=== PATIENT | female | born 1990 | race Caucasian/White ===

== ENCOUNTER 2019-05-18 14:54 | Outpatient (CLI) | payer MEDICAID, SELFPAY ==
[2019-05-18 15:30] LABS: Abs Immature Grans 0.05 k/cumm (0.0-0.09); Absolute Basophil Count 0.03 k/cumm (0.0-0.2); Absolute Lymphocyte Count 2.55 k/cumm (1.2-3.4); Absolute Monocyte Count 0.42 k/cumm (0.11-0.7); Basophils % 0.2; Eosinophils % 1.1; HCT 37.4 % (36.0-46.0); HGB 12.6 g/dL (12.0-15.5); Immature Grans % 0.4; Lymphocytes % 18.2; Mean Corp. HGB Concentration 33.7 g/dL (32.0-36.0); Mean Corpuscular Hemoglobin 31.7 pg (27.0-33.0); Mean Platelet Volume 10.2 fL (8.0-11.0); Neutrophils % 77.1; Platelet Count 377 x1000/uL (130-400); RBC 3.98 m/cumm (4.00-5.20); RBC Distribution Width 12.6 % (11.7-14.6); White Blood Cell Count 13.99 k/cumm (4.4-10.8)
[2019-05-18 15:32] LABS: Absolute Eosinophil Count 0.15 k/cumm (0.0-0.7); Absolute Neutrophil Count 10.79 k/cumm (1.2-6.7)
[2019-05-18 20:56] LABS: ALT 35 U/L (14-59); AST 34 U/L (15-37); Albumin 3.2 g/dL (3.4-5.0); Alkaline Phosphatase 137 U/L (46-116); Bilirubin, Direct 0.14 mg/dL (0.00-0.20); Bilirubin, Total 0.2 mg/dL (0.2-1.0); TSH (W/Ref FT4) 2.06 uIU/mL (0.36-3.74); Total Protein 6.9 g/dL (6.4-8.2)
[2019-05-19 10:13] LABS: Hepatitis C Ab w Rflx HCV PCR Negative (NEGAT)
[2019-05-19 10:26] LABS: HIV-1/2 Ag & Ab Screen Negative (NEGAT); Hepatitis B Surface Ag Negative (NEGAT)
[2019-05-19 10:42] LABS: Rubella IgG Ab (UVM) Positive; Varicella IgG Antibody Positive
[2019-05-19 15:57] LABS: Syphilis Total Ab w/Reflex Nonreactive (Nonreactive)
== END 2019-05-18 15:14 ==
PROVIDERS: Visit Provider Advanced Practice Midwife
DX: Z34.91 Encounter for supervision of normal pregnancy, unspecified, first trimester (principal); Z11.3 Encounter for screening for infections with a predominantly sexual mode of transmission; Z11.4 Encounter for screening for human immunodeficiency virus [HIV]; Z11.59 Encounter for screening for other viral diseases; Z01.84 Encounter for antibody response examination; Z12.4 Encounter for screening for malignant neoplasm of cervix; Z11.51 Encounter for screening for human papillomavirus (HPV)
CPT/HCPCS: 36415; 80076; 86787; 86803; 86850; 86900; 86901; 87340; 87389; 87491; 87591; 88142; 84443; 85025; 86762; 86780; 87624

== ENCOUNTER 2019-05-18 15:54 | Outpatient (REF) | payer MEDICAID, SELFPAY ==
--- NOTE | 2019-05-18 14:00 | PAPFT_PTH ---
PATIENT: Gabriela Hines LOC: [facility] U#:[id number] AGE/SX: 28/F ROOM: RE05/18/[address]: Jovany Clemons RN : 1990 BED: DIS: 05/18/2019 SPEC #: [id number] RECD: 05/18/19 18:32 STATUS: DARLINE REQ #: [id number] KVNG: 05/18/19 14:[address]: Jovany Clemons DEPT: [facility] Cytology RECD BY: Rosy Melgar ENTERED: 05/18/19 18:32 SP TYPE: PAPFT TAMMIE DR: None Tissues: 1 - CX/ENDOCX FOR PAP SMEARS Procedures: PAP THIN PREP/UVM Screening HPV DNA PROBE Comments: [id number]
[2019-05-20 15:16] LABS: Chlamydia Result Negative; GC Result Negative; Specimen Description CERVIX
== END 2019-05-18 16:14 ==
LOC: LBN 15:54
PROVIDERS: Visit Provider Advanced Practice Midwife
DX: Z34.91 Encounter for supervision of normal pregnancy, unspecified, first trimester (principal); Z11.3 Encounter for screening for infections with a predominantly sexual mode of transmission; Z12.4 Encounter for screening for malignant neoplasm of cervix; Z11.51 Encounter for screening for human papillomavirus (HPV)
CPT/HCPCS: 87491; 87591; 88142; 87624

== ENCOUNTER 2019-05-28 12:08 | Outpatient (CLI) | payer MEDICAID, SELFPAY ==
[2019-06-08 14:04] LABS: Result Summary NEGATIVE; Specimen WB Whole Blood
== END 2019-05-28 12:28 ==
PROVIDERS: Visit Provider Advanced Practice Midwife
DX: Z36.89 Encounter for other specified antenatal screening; Z34.91 Encounter for supervision of normal pregnancy, unspecified, first trimester
CPT/HCPCS: 36415; 81220

== ENCOUNTER 2019-06-24 09:39 | Outpatient (CLI) | payer MEDICAID, SELFPAY ==
[2019-06-24 09:59] LABS: Kit/Specimen SENT
== END 2019-06-24 09:59 ==
PROVIDERS: Visit Provider Obstetrics & Gynecology
DX: Z34.81 Encounter for supervision of other normal pregnancy, first trimester (principal); Z36.89 Encounter for other specified antenatal screening
CPT/HCPCS: 36415

== ENCOUNTER 2019-08-04 00:55 | Outpatient (CLI) | payer MEDICAID, SELFPAY ==
--- NOTE | 2019-08-04 08:38 | DI.US_ITS ---
EXAM: US OB 2-3 TRIMESTER CLINICAL HISTORY: morphology u/s, , Z34.90 TECHNIQUE: Transabdominal obstetrical ultrasound performed. COMPARISON: No previous for comparison. FINDINGS: Transabdominal obstetrical ultrasound performed. FINDINGS: Number of fetuses: One. position: Varied heart rate: 160 bpm. Placental grade: 1 Placental location: Posterior. No evidence of previa. BIOMETRIC DATA: BPD: 4.3cm HC: 15.7cm AC: 13.5cm FL: 2.6cm Cisterna Magna: 3.9 millimeters Cerebellum: 1.88 centimeters EFW: 242 grms 32% Composite Age: 18 weeks 4 days Heart Rate: 160BPM Amniotic fluid index: Amount of fluid is within normal limits. ANATOMICAL SURVEY: Four-chambered heart: Unremarkable. LVOT: Unremarkable. RVOT: Unremarkable. Left-sided stomach: Unremarkable. urinary bladder: Unremarkable. Bilateral kidneys: Unremarkable. Three-vessel cord: Unremarkable. Cord insertion: Unremarkable. Posterior fossa:Unremarkable. ventricles: Unremarkable. nose: Unremarkable. lips: Unremarkable. palate: Unremarkable. spine: Unremarkable. Two arms and two legs: Unremarkable. IMPRESSION: 1. Single live intrauterine gestation as above. Estimated gestational age is 18 weeks 4 days. 2. No or placental abnormalities are identified.
== END 2019-08-04 01:15 ==
PROVIDERS: Visit Provider Obstetrics & Gynecology Gynecology
DX: Z34.92 Encounter for supervision of normal pregnancy, unspecified, second trimester (principal)
CPT/HCPCS: 76805

== ENCOUNTER 2019-10-13 11:13 | Outpatient (CLI) | payer MEDICAID, SELFPAY ==
[2019-10-13 11:25] LABS: Abs Immature Grans 0.05 k/cumm (0.0-0.09); Absolute Basophil Count 0.02 k/cumm (0.0-0.2); Absolute Monocyte Count 0.25 k/cumm (0.11-0.7); Absolute Neutrophil Count 5.08 k/cumm (1.2-6.7); Basophils % 0.3; Eosinophils % 1.4; HCT 32.2 % (36.0-46.0); HGB 10.7 g/dL (12.0-15.5); Immature Grans % 0.7 %; Lymphocytes % 20.3; Mean Corp. HGB Concentration 33.2 g/dL (32.0-36.0); Mean Corpuscular Hemoglobin 31.8 pg (27.0-33.0); Mean Corpuscular Volume 95.8 fL (80-95); Mean Platelet Volume 9.8 fL (8.0-11.0); Monocytes % 3.6; Neutrophils % 73.7; Platelet Count 343 x1000/uL (130-400); RBC 3.36 m/cumm (4.00-5.20); RBC Distribution Width 12.8 % (11.7-14.6)
[2019-10-13 11:31] LABS: Glucose,1 Hr (Glucola) 128 mg/dL (80-140)
== END 2019-10-13 11:33 ==
PROVIDERS: Visit Provider Obstetrics & Gynecology
DX: Z34.93 Encounter for supervision of normal pregnancy, unspecified, third trimester (principal)
CPT/HCPCS: 36415; 82950; 85025

== ENCOUNTER 2019-11-13 02:11 | Outpatient (CLI) | payer MEDICAID, SELFPAY ==
--- NOTE | 2019-11-13 12:45 | DI.US_ITS ---
EXAM: US OB WOJCIECH AND WEIGHT CLINICAL HISTORY: HISTORY OF IUGR, -Z34.90. TECHNIQUE: Transabdominal obstetrical ultrasound performed. COMPARISON: US OB 2-3 TRIMESTER from 08/04/2019 FINDINGS: Transabdominal obstetrical ultrasound performed. There is a single intrauterine gestation. Estimated sonographic age is 32 weeks. Estimated weight is 1954 g. This is the 20th percentile. Amniotic fluid index is 16.0 cm. Visually, the amniotic fluid appears within normal limits. Fetus is in the cephalic presentation. heart rate is 125 beats per minute. The placenta is posterior without evidence of previa. IMPRESSION: Single live intrauterine gestation as above. DATA REPOSITORY:
== END 2019-11-13 02:31 ==
PROVIDERS: Visit Provider Obstetrics & Gynecology
DX: Z34.93 Encounter for supervision of normal pregnancy, unspecified, third trimester (principal)
CPT/HCPCS: 76816

== ENCOUNTER 2019-11-17 00:50 | Inpatient (IN) | payer MEDICAID, SELFPAY ==
[2019-11-17 01:57] LABS: Bilirubin Small (Negative); Blood Trace-intact (Negative); Clarity Clear (Clear); Glucose Negative (Negative); Ketones Negative (Negative); Leukocyte Esterase Trace (Negative); Nitrite Negative (Negative); Specific Gravity 1.025 (1.005-1.025)
[2019-11-17 01:58] LABS: Bacteria Few HPF (Negative); C & S Indicated? Yes; Casts Negative LPF (Negative); Crystals Negative HPF (Negative); Epithelial Cells Few HPF (Negative); Mucus Negative (Negative); RBC 0-2 HPF (0-2)
[2019-11-17] MEDS: ceFAZolin 1 GM/50 ML BAG IVPB (02:07)
[2019-11-17] MEDS: Lactated Ringers 1,000 ML 150 ML IV (02:08)
[2019-11-17] MEDS: Betamet Acet/Betamet Na Ph Inj. 30 MG/5 ML 12 MG IM (02:08)
[2019-11-17 02:09] LABS: *AMPHETAMINES SCREEN URINE Negative (Negative); *BARBITURATES SCREEN URINE Negative (Negative); *BENZODIAZEPINES SCREEN URINE Negative (Negative); Cannabinoids THC Negative (Negative); Cocaine Screen,Urine Negative (Negative); METHADONE URINE SCREEN POSITIVE (Negative); OPIATES URINE SCREEN Negative (Negative)
[2019-11-17 02:15] LABS: Tricyclic Antidepressants Negative (Negative)
[2019-11-17 02:18] LABS: HCT 31.2 % (36.0-46.0); HGB 10.4 g/dL (12.0-15.5); Mean Corp. HGB Concentration 33.3 g/dL (32.0-36.0); Mean Corpuscular Hemoglobin 31.3 pg (27.0-33.0); Platelet Count 324 x1000/uL (130-400); RBC 3.32 m/cumm (4.00-5.20); RBC Distribution Width 13.3 % (11.7-14.6); White Blood Cell Count 8.68 k/cumm (4.4-10.8)
[2019-11-17] MEDS: Azithromycin 250 MG TAB 1000 MG PO (02:26)
[2019-11-17] MEDS: Albuterol HFA 8 GM 60 PUFF INH IH (02:26)
--- NOTE | 2019-11-17 02:38 | W.PM.HP.N ---
Date of service: 11/17/19 Time of Service: 02:38 Assessment and Plan Assessment and plan (1) Long-term current use of methadone for opiate dependence: Status: Acute Assessment and plan: Patient has been compliant with her methadone maintenance no IV drug use for 3 years. (2) Major depressive disorder, recurrent, unspecified: Status: Acute Assessment and plan: Depression symptoms stable. Currently none of her children are in her care. Her mother has custody of her children. She sees them on a regular basis. Qualifiers: Active/Remission status: currently active Major depression episode severity: unspecified Qualified Code(s): F33.9 - Major depressive disorder, recurrent, unspecified (3) premature rupture of membranes: Status: Acute Assessment and plan: GBS rectovaginal culture obtained. Will be transported with the patient. Patient has received azithromycin 1 g orally, 1 g of cefoxitin, magnesium sulfate infusion will be initiated prior to transport. CBC and type and screen have been obtained. She has been accepted for transfer at [facility]. Qualifiers: PROM onset of labor timing: unspecified duration between rupture of membranes and onset of labor Qualified Code(s): O42.919 - premature rupture of membranes, unspecified as to length of time between rupture and onset of labor, unspecified trimester History of Present Illness History of Present Illness Chief Complaint: SROM at 2345 11/16/2019. Patient 33-5/7 weeks EGA Review of Systems Constitutional Constitutional: Reports as per HPI Respiratory Respiratory: Reports system reviewed and no additional complaints, except as documented Gastrointestinal Gastrointestinal: Reports system reviewed and no additional complaints, except as documented Genitourinary Genitourinary: Reports other (Gush of fluid at 2345. Occasional contractions) Musculoskeletal Musculoskeletal: Reports other (Pretibial lower extremity edema 1+) Integumentary/Breasts Skin/Breast: Reports system reviewed and no additional complaints, except as documented Psychiatric Psychiatric: Reports anxiety Comments: Patient compliant with methadone maintenance at 85 mg/day through the [facility] Medical History (Updated 11/17/19 @ 02:52 by Ashly Johnson MD) Anxiety disorder, unspecified (Acute) Chronic pelvic pain in female since of her son 06/2012 Constipation Contraception (10/21/15) depoprovera after at 33w. IBS (irritable bowel syndrome) Long-term current use of methadone for opiate dependence (Acute) Through [facility] in [facility]. 11 17 2019 current dose 85 mg Major depressive disorder, recurrent, unspecified (Acute) Opioid abuse began Methadone Rx during 2016 (Acute) premature rupture of membranes (Acute) 33 weeks 5 days EGA Surgical History (Updated 06/18/18 @ 14:36 by [employer] [place]) Appendectomy (~2011) Dilation and curettage with SAB age 15 Family History (Updated 05/18/19 @ 13:34 by Jovany Villar CNM) Father Blood clotting tendency pt does not know exact name, it was cause of . COPD (chronic obstructive pulmonary disease) Mother Diabetes Social History (Updated 06/22/19 @ 12:52 by Jeri Tony RN) Smoking/Tobacco Use Status: Current every day Alcohol Intake: former Drug use: Current Sobriety Substance use type: former substance user and painkillers Seatbelt use: never Do you feel safe in your relationship?: Yes Female Reproductive History Menstrual control method: none History History 9 Para 5 Hx # Term Pregnancies 3 Multiple births 0 Hx # Pregnancies 2 Ectopic pregnancies 0 AB induced 1 Hx Number of Living Children 5 AB spontaneous 2 Past Pregnancies Del. Date GA/Weeks # Outcome Route Wgt Sex Labor Lgth Anesthesia Location [facility] 01/05/10 38 No Successful vaginal 6 lb 1 oz Female 4 hrs [facility] 12/21/10 34 No Successful vaginal 5 lb 8 oz Female ? [facility] 06/11/12 24 No Successful vaginal 2 lb 8 oz [place] [facility] [place] 07/26/14 38 No Successful vaginal 6 lb 11 oz Female ? [facility] dr[facility] cheng 10/20/15 24 No Successful vaginal 4 lb 8 oz Female ? dr. cheng Delivery Date: 01/05/10 w/o c/o. JOVANY VILLAR Delivery Date: 12/21/10 sga thus iol, w/o c/o. JOVANY VILLAR Delivery Date: 06/11/12 [place] [facility] [place] then [place] then delivery. JOVANY VILLAR Delivery Date: 07/26/14 term spontaneous JOVANY VILLAR Delivery Date: 10/20/15 circlage spontaneous labor 6cm on admission, delivered at [facility], yet infant to [facility] [place] 2`to infection , a&w. AUREA,ANEA Meds Home Medications and Allergies Home Medications Medication Instructions Recorded Confirmed Type mirtazapine 30 mg tablet 30 mg PO HS #120 tab-cap 05/09/19 10/13/19 Rx hydroxyprogest(PF)(preg presv) 275 275 mg SC QWEEK #4 syringe 09/07/19 10/13/19 Rx mg/1.1 mL subcut auto-inject albuterol sulfate 90 mcg/actuation 1 inh IH ONCE #18 gm 11/13/19 11/13/19 Rx aerosol inhaler omeprazole 40 mg capsule,delayed 40 mg PO DAILY #60 cap 11/13/19 11/13/19 Rx release methadone 10 mg/mL oral concentrate 85 mg PO DAILY ml 11/17/19 11/17/19 History Allergies Allergy/AdvReac Type Severity Reaction Status Date / Time amoxicillin Allergy Mild Skin Rash Verified 11/13/19 13:42 sulfamethoxazole Allergy Mild Skin Rash Verified 11/13/19 13:42 [From Bactrim] Latex, Natural Rubber Allergy Verified 11/13/19 13:42 Penicillins Allergy Skin Rash Verified 11/13/19 13:42 acetaminophen AdvReac Severe liver Verified 11/13/19 13:42 disease Exam Narrative Exam Narrative: female currently 33w5d EGA with a CJ of 12/31/2019 by a first trimester OB ultrasound who reports spontaneous rupture membranes this evening. She presented to the center at [facility] and was nitrazine positive ferning +3 cm dilated 100% effaced vertex -1 station contractions every 2 to 3 minutes heart rate in the 140s with reassuring surveillance. After discussion with the patient she is agreed to transfer to a facility with a level 2 nursery. She is aware that no beds are currently available at local tertiary care facilities and that [facility] is able to accept her. Const General: no acute distress and frail appearing Nutritional Appearance: thin Orientation: alert, awake and oriented x3 HENMT Teeth and gingiva: poor dentition Resp Effort & Inspection: normal respiratory effort Auscultation: clear to auscultation bilaterally Cardio Rate: regular rate Rhythm: regular rhythm GI Inspection: normal to inspection (Gravid) Rectal Exam - female: other (Hard feces and rectum on bimanual exam) Manual OB Exam: dilated 3, effaced fully (90-100%), station -1 and other (Vertex) Amniotic Fluid: clear, Nitrazine positive and ferning present Skin General skin exam: scars (From previous IV drug use) Results Labs Result diagrams: 11/17/19 01:50 Labs: Laboratory Results - last 24 hr 11/17/19 11/17/19 11/17/19 01:05 01:05 01:50 WBC 8.68 RBC 3.32 L Hgb 10.4 L Hct 31.2 L MCV 94.0 MCH 31.3 MCHC 33.3 RDW 13.3 Plt Count 324 MPV 11.0 Urine Color Yellow Urine Clarity Clear Urine pH 7.0 Ur Specific [place] 1.025 Urine Protein 100 H Urine Ketones Negative Urine Blood Trace-intact H Urine Nitrite Negative Urine Bilirubin Small H Urine Urobilinogen 1.0 H Ur Leukocyte Esterase Trace H Urine RBC 0-2 Urine WBC 3-5 Ur Epithelial Cells Few Urine Crystals Negative Urine Bacteria Few Urine Casts Negative Urine Mucus Negative Ur Culture Indicated? Yes Urine Glucose Negative Urine Opiates Screen Negative Urine Methadone Screen Positive A Ur Barbiturates Screen Negative Ur Tricyclics Screen Negative Ur Amphetamines Screen Negative U Benzodiazepines Scrn Negative Urine Cocaine Screen Negative Ur THC Screen Negative
== END 2019-11-17 03:20 | disposition other institution (70) | DRG 832 ==
LOC: OBS 00:56
PROVIDERS: Admitting Provider Obstetrics & Gynecology Gynecology; PCP Emergency Medicine; Visit Provider Obstetrics & Gynecology Gynecology
DX: O42.013 Preterm premature rupture of membranes, onset of labor within 24 hours of rupture, third trimester (principal); O99.323 Drug use complicating pregnancy, third trimester; F11.20 Opioid dependence, uncomplicated; Z3A.33 33 weeks gestation of pregnancy; O99.333 Smoking (tobacco) complicating pregnancy, third trimester; O99.343 Other mental disorders complicating pregnancy, third trimester; F17.210 Nicotine dependence, cigarettes, uncomplicated; Z36.85 Encounter for antenatal screening for Streptococcus B; F32.9 Major depressive disorder, single episode, unspecified
CPT/HCPCS: 80307; 85027; 86850; 86900; 86901; 99222; 81003; 81015; 87081; 87086; G0378; J0690; J0702; J3475; J3490

== ENCOUNTER 2020-05-03 04:01 | Outpatient (CLI) | payer MEDICAID, SELFPAY ==
[2020-05-03 12:09] LABS: Kit/Specimen SENT
[2020-05-03 12:24] LABS: Abs Immature Grans 0.02 10^3/uL (0.0-0.06); Absolute Basophil Count 0.03 10^3/uL (0.0-0.2); Absolute Eosinophil Count 0.14 10^3/uL (0.0-0.7); Absolute Lymphocyte Count 2.41 10^3/uL (1.2-3.4); Absolute Monocyte Count 0.25 10^3/uL (0.1-0.8); Absolute Neutrophil Count 3.22 10^3/uL (1.2-6.7); Basophils % 0.5; Eosinophils % 2.3; HCT 32.7 % (36.0-46.0); HGB 10.6 g/dL (11.2-15.7); Immature Grans % 0.3; Lymphocytes % 39.7; MCH 29.6 pg (27.0-33.0); MCHC 32.4 % (32.0-36.0); MCV 91.3 fL (80-95); MPV 10.4 fL (8.0-11.0); Monocytes % 4.1; Neutrophils % 53.1; Nucleated RBC 0 %; Platelet Count 355 10^3/uL (130-400); RBC 3.58 10^6/uL (3.93-5.22); RDW 15.8 % (11.7-14.6); RDW-SD 52.9 fL; WBC 6.07 10^3/uL (4.4-10.8)
[2020-05-03 13:08] LABS: TSH (W/Ref FT4) 1.31 uIU/mL (0.36-3.74)
[2020-05-03 15:04] LABS: *AMPHETAMINES SCREEN URINE Negative (Negative); *BARBITURATES SCREEN URINE Negative (Negative); *BENZODIAZEPINES SCREEN URINE Negative (Negative); Cannabinoids THC Negative (Negative); Cocaine Screen,Urine Negative (Negative); METHADONE URINE SCREEN POSITIVE (Negative); OPIATES URINE SCREEN Negative (Negative)
[2020-05-03 15:10] LABS: Tricyclic Antidepressants Negative (Negative)
[2020-05-04 11:12] LABS: Hepatitis B Surface Ag Negative (Negative)
[2020-05-04 11:13] LABS: Varicella IgG Antibody Positive (See Note)
[2020-05-04 11:15] LABS: Rubella IgG Ab (UVM) Positive (See Note)
[2020-05-04 11:46] LABS: HIV-1/2 Ag & Ab Screen Negative (Negative)
[2020-05-04 12:13] LABS: Hepatitis C Ab w Rflx HCV PCR Negative (Negative)
[2020-05-04 13:50] LABS: Chlamydia Result Negative (Negative); GC Result Negative (Negative)
[2020-05-04 16:28] LABS: Syphilis Total Ab w/Reflex Nonreactive (Nonreactive)
[2020-05-11 11:07] LABS: Buprenorphine Negative; Norbuprenorphine Negative
== END 2020-05-03 04:21 ==
PROVIDERS: PCP Emergency Medicine; Visit Provider Advanced Practice Midwife
DX: Z34.91 Encounter for supervision of normal pregnancy, unspecified, first trimester (principal); Z36.89 Encounter for other specified antenatal screening; Z11.4 Encounter for screening for human immunodeficiency virus [HIV]; Z11.59 Encounter for screening for other viral diseases; Z01.84 Encounter for antibody response examination; Z11.3 Encounter for screening for infections with a predominantly sexual mode of transmission
CPT/HCPCS: 36415; 80307; 86787; 86803; 86850; 86900; 86901; 87340; 87389; 87491; 87591; 84443; 85025; 86762; 86780

== ENCOUNTER 2020-05-25 02:48 | Outpatient (CLI) | payer MEDICAID, SELFPAY ==
[2020-05-25 08:25] LABS: Kit/Specimen SENT
== END 2020-05-25 03:08 ==
PROVIDERS: Advanced Practice Midwife; PCP Emergency Medicine; Visit Provider Obstetrics & Gynecology
DX: Z34.91 Encounter for supervision of normal pregnancy, unspecified, first trimester (principal); Z36.89 Encounter for other specified antenatal screening
CPT/HCPCS: 36415

== ENCOUNTER 2020-07-05 01:14 | Outpatient (CLI) | payer MEDICAID, SELFPAY ==
--- NOTE | 2020-07-05 06:45 | DI.US_ITS ---
EXAM: US OB 2-3 TRIMESTER CLINICAL HISTORY: Anatomy survey,Z34.90. TECHNIQUE: Transabdominal obstetrical ultrasound performed. COMPARISON: US US OB WOJCIECH WEIGHT from 11/13/2019 FINDINGS: Transabdominal obstetrical ultrasound performed. FINDINGS: Number of fetuses: One. position: Varied heart rate: 140 bpm. Placental location: Anterior. No evidence of previa. BIOMETRIC DATA: Composite Age: 19 weeks 2 days EDC: 11/27/2020 Heart Rate: 140BPM Amniotic fluid index: Amount of fluid is within normal limits. ANATOMICAL SURVEY: Within normal limits. BPD: 4.3cm HC: 16.3cm AC: 14.4cm FL: 3cm Cisterna Magna: 5 mm Cerebellum: 1.9 cm IMPRESSION: 1. Single live intrauterine gestation as above. 2. Normal anatomic survey. DATA REPOSITORY:
--- NOTE | 2020-07-05 06:45 | DI.US_ITS ---
EXAM: US ABDOMEN CLINICAL HISTORY: RUQ pain IN , R10.11 TECHNIQUE: Ultrasound abdomen performed using standard protocol. COMPARISON: No exams were available for comparison FINDINGS: ABDOMINAL AORTA AND IVC: Visualized portions normal caliber. PANCREAS: Normal where visualized. LIVER: Normal. Hepatopedal flow in the Portal Vein. GALLBLADDER: Multiple mobile gallstones. No evidence of wall thickening. No pericholecystic fluid id entified. BILIARY SYSTEM: Common bile duct measures < 7 mm. No intrahepatic biliary ductal dilation. ROCHA'S SIGN: Negative. KIDNEYS: Kidneys are symmetric in size. No evidence of renal calculi. No evidence of hydronephrosis. No renal mass or cyst identified. SPLEEN: Not enlarged. ASCITES: None seen. IMPRESSION: Cholelithiasis. No sonographic evidence of acute cholecystitis. DATA REPOSITORY:
== END 2020-07-05 01:34 ==
PROVIDERS: PCP Emergency Medicine; Visit Provider Obstetrics & Gynecology
DX: Z34.92 Encounter for supervision of normal pregnancy, unspecified, second trimester (principal); O99.612 Diseases of the digestive system complicating pregnancy, second trimester; K80.20 Calculus of gallbladder without cholecystitis without obstruction
CPT/HCPCS: 76700; 76805

== ENCOUNTER 2020-07-07 11:57 | Inpatient (IN) | payer MEDICAID, SELFPAY ==
[2020-07-07] VITALS (49 sets, daily range): BP systolic 97–157; BP diastolic 49–79; PULSE 60–101; RESP 5–20; TEMP 36.5–36.7; O2SAT 93–100
[2020-07-07 12:33] LABS: Abs Immature Grans 0.07 10^3/uL (0.0-0.06); Absolute Basophil Count 0.02 10^3/uL (0.0-0.2); Absolute Eosinophil Count 0.05 10^3/uL (0.0-0.7); Absolute Lymphocyte Count 1.27 10^3/uL (1.2-3.4); Absolute Monocyte Count 0.35 10^3/uL (0.1-0.8); Absolute Neutrophil Count 9.87 10^3/uL (1.2-6.7); Basophils % 0.2; Eosinophils % 0.4; HCT 28.9 % (36.0-46.0); HGB 9.4 g/dL (11.2-15.7); Immature Grans % 0.6; Lymphocytes % 10.9; MCH 30.9 pg (27.0-33.0); MCHC 32.5 % (32.0-36.0); MCV 95.1 fL (80-95); MPV 9.9 fL (8.0-11.0); Neutrophils % 84.9; Nucleated RBC 0 %; Platelet Count 371 10^3/uL (130-400); RBC 3.04 10^6/uL (3.93-5.22); RDW 13.2 % (11.7-14.6); RDW-SD 45.9 fL; WBC 11.63 10^3/uL (4.4-10.8)
--- NOTE | 2020-07-07 12:36 | NUR.NOTE ---
water aerobics instructor at bedside for evaluation:
[2020-07-07 12:49] LABS: ALT 32 U/L (14-59); AST 27 U/L (15-37); Albumin 2.1 g/dL (3.4-5.0); Alkaline Phosphatase 610 U/L (46-116); Anion Gap 13.6 mmol/L (3-11); BUN 11 mg/dL (7-18); Bilirubin, Total 0.4 mg/dL (0.2-1.0); CO2 22.4 mmol/L (21.0-32.0); CREATININE 0.84 mg/dL (0.55-1.02); Calcium 8.7 mg/dL (8.5-10.1); Chloride 102 mmol/L (98-107); Glucose 109 mg/dL (74-106); Potassium 3.5 mmol/L (3.5-5.1); Sodium 138 mmol/L (136-145); Total Protein 7.4 g/dL (6.4-8.2)
[2020-07-07] MEDS: Albuterol/Ipratropium 3 ML UPD VIAL UPD ×2 (12:54→13:07)
--- NOTE | 2020-07-07 12:55 | DI.RAD_ITS ---
EXAM: XR CHEST 1V IN DI DEPT CLINICAL HISTORY: cough, wheeze TECHNIQUE: 2D digital imaging was performed. COMPARISON: No exams were available for comparison FINDINGS: MEDIASTINUM: Normal. HEART: Normal. PULMONARY VASCULATURE: Normal. LUNGS: Increased lung markings in the bases left greater than right. Pneumonia cannot be excluded. PLEURAL SPACE: No pleural effusion or pneumothorax. BONE:Within normal limits for the patient's age. OTHER FINDINGS:Poor inspiration. IMPRESSION: 1. Low lung volumes are present due to poor inspiration. 2. Basilar infiltrate suspicious for pneumonia. DATA REPOSITORY: RADIATION DOSE DELIVERED:
--- NOTE | 2020-07-07 13:07 | W.GYNCONSULT ---
Date of service: 07/07/20 Time of Service: 13:07 Assessment and Plan Assessment and plan (1) with 20 completed weeks gestation: Status: Acute Assessment and plan: Patient has care well at [facility]. She has had an episode of vaginal bleeding with cough. She has no signs of labor at this point. She will monitor for further symptoms. (2) Long-term current use of methadone for opiate dependence: Status: Acute Assessment and plan: Continue medication assisted therapy through [facility] (3) Smoker: Status: Chronic Assessment and plan: Encourage smoking cessation (4) Anxiety and depression: Status: Chronic (5) Upper respiratory infection: Status: Acute Assessment and plan: Await chest x-ray and laboratory studies. Agree with bronchodilators, possible antibiotics as needed. History of Present Illness History of Present Illness Chief Complaint: Cough and congestion, vaginal bleeding Narrative: Patient is a 29-year-old female well-known to the [facility] who is currently 20 weeks gestation. She is a grand multipara with 3 previous term deliveries, 3 previous deliveries, and 3 early losses. She has had intermittent care in our office. Her most recent visit was mid June. She had a recent pelvic ultrasound for growth and anatomy. She presented to the emergency department today with upper respiratory symptoms. She has a daughter who was recently hospitalized at [facility] with bronchiolitis as well. She denies fever but has significant cough. She reports an episode of vaginal bleeding after significant episodes of coughing. She denies fever at this point. Her oral intake has been appropriate. She denies cramping. Baby is moving and active for her. Consults Consult date: 07/07/20 Requesting physician: Soto Brooks Review of Systems Constitutional Constitutional: Reports as per HPI Eyes Eyes: Reports system reviewed and no additional complaints, except as documented Cardiovascular Cardiovascular: Reports as per HPI Respiratory Respiratory: Reports as per HPI, Reports chest congestion, Reports pain with cough and Reports wheezing Gastrointestinal Gastrointestinal: Reports system reviewed and no additional complaints, except as documented Genitourinary Genitourinary: Reports system reviewed and no additional complaints, except as documented and Reports as per HPI Comments: Episode of vaginal bleeding after coughing which is now tapered off no cramping, no uterine contractions. Neurologic Neurologic: Reports system reviewed and no additional complaints, except as documented Allergic/Immunologic Allergic/Immunologic: Reports wheezing PFSH Medical History Anxiety disorder, unspecified Chronic pelvic pain in female since of her son 06/2012 Constipation Contraception (10/21/15) depoprovera after at 33w. IBS (irritable bowel syndrome) Long-term current use of methadone for opiate dependence Through [facility] in [facility]. 11 17 2019 current dose 85 mg Major depressive disorder, recurrent, unspecified Opioid abuse began Methadone Rx during 2016 premature rupture of membranes 11/16/2019 33 weeks 5 days EGA. Transferred to [facility] in [facility]. . F. 4lb8oz. Marah. [place] [facility] [place]. Surgical History Appendectomy (~2011) Dilation and curettage with SAB age 15 Family History Father Blood clotting tendency pt does not know exact name, it was cause of . COPD (chronic obstructive pulmonary disease) Mother Diabetes Social History Smoking/Tobacco Use Status: Current every day Smoking risk assessment performed?: Yes Alcohol Intake: former Drug use: Current Sobriety Substance use type: former substance user and painkillers Seatbelt use: never Do you feel safe at home: Yes Do you feel safe in your relationship?: Yes Female Reproductive History Menstrual control method: none History History 10 Para 6 Hx # Term Pregnancies 3 Multiple births 0 Hx # Pregnancies 3 Ectopic pregnancies 0 AB induced 1 Hx Number of Living Children 6 AB spontaneous 2 Past Pregnancies Del. Date GA/Weeks # Outcome Route Wgt Sex Labor Lgth Anesthesia Location Prov Complic 01/05/10 38 No Successful vaginal 6 lb 1 oz Female [facility] hrs [facility] [place] 12/21/10 34 No Successful vaginal 5 lb 8 oz Female ? [facility] 06/11/12 24 No Successful vaginal 2 lb 8 oz [place] [facility] [place] 38 No Successful vaginal 6 lb 11 oz Female ? regional dr. cheng 10/20/15 24 No Successful vaginal 4 lb 8 oz Female ? dr. cheng 11/17/19 34 No Successful vaginal 4 lb 8 oz Female quick labor and , no meds [place] Delivery Date: 01/05/10 w/o c/o. COREY VILLAR Delivery Date: 12/21/10 sga thus iol, w/o c/o. COREY VILLAR Delivery Date: 06/11/12 [place] [facility] [place]. COREY VILLAR Delivery Date: 07/26/14 term spontaneous COREY VILLAR Delivery Date: 10/20/15 circlage spontaneous labor 6cm on admission, delivered at [facility], [place] [facility] [place] 2[place] infection , a&w. COREY VILLAR Delivery Date: 11/17/19 PPROM, transferred to [facility], delivered the next day. Izabella Pardo Exam Const General: cooperative, well developed and ill appearing Nutritional Appearance: thin Orientation: alert and oriented x3 Eyes General: appearance normal, both eyes and all related structures Resp Effort & Inspection: audible wheezes Auscultation: bronchovesicular breath sounds, rhonchi left upper and wheezes upper bilaterally Cardio Rate: regular rate Rhythm: regular rhythm Heart Sounds: S1 normal and S2 normal Other: Uterus gravid at the umbilicus. Nontender, no palpable contractions. Results Last Vital Signs Temp 97.7 F 07/07/20 12:04 Pulse 74 07/07/20 12:54 Resp 17 07/07/20 12:54 BP 112/52 L 07/07/20 12:04 Pulse Ox 100 07/07/20 12:54 Labs Result diagrams: 07/07/20 12:23 07/07/20 12:23 Labs: Laboratory Results - last 24 hr 07/07/20 07/07/20 12:23 12:23 WBC 11.63 H RBC 3.04 L Hgb 9.4 L Hct 28.9 L MCV 95.1 H MCH 30.9 MCHC 32.5 RDW 13.2 Plt Count 371 MPV 9.9 Immature Gran % 0.6 Neutrophils % 84.9 Lymphocytes % 10.9 Monocytes % 3.0 Eosinophils % 0.4 Basophils % 0.2 Nucleated RBC % 0 Absolute Neutrophils 9.87 H Absolute Lymphocytes 1.27 Absolute Monocytes 0.35 Absolute Eosinophils 0.05 Absolute Basophils 0.02 Sodium 138 Potassium 3.5 Chloride 102 Carbon Dioxide 22.4 Anion Gap 13.6 H BUN 11 Creatinine 0.84 Estimated GFR/1.73 m2 >= 60.00 Glucose 109 H Calcium 8.7 Total Bilirubin 0.4 AST 27 ALT 32 Alkaline Phosphatase 610 H Total Protein 7.4 Albumin 2.1 L
--- NOTE | 2020-07-07 14:58 | NUR.NOTE ---
checked pts chari pad. scant old drainage. nothing new. no active bleeding currently:
[2020-07-07 15:01] LABS: HCT 27.2 % (36.0-46.0); HGB 8.7 g/dL (11.2-15.7); MCH 30.3 pg (27.0-33.0); MCV 94.8 fL (80-95); MPV 9.8 fL (8.0-11.0); Platelet Count 337 10^3/uL (130-400); RBC 2.87 10^6/uL (3.93-5.22); RDW 13.2 % (11.7-14.6); RDW-SD 46.2 fL; WBC 9.34 10^3/uL (4.4-10.8)
--- NOTE | 2020-07-07 15:17 | DI.US_ITS ---
EXAM: US OB F/U FACIAL/LVOT/RVOT CLINICAL HISTORY: vaginal bleeding. TECHNIQUE: Transabdominal obstetrical ultrasound performed. COMPARISON: No exams were available for comparison FINDINGS: Transabdominal obstetrical ultrasound performed. FINDINGS: Number of fetuses: One. position: Breech heart rate: 152 bpm. Placental location: Anterior. No evidence of previa. BIOMETRIC DATA: Amniotic fluid index: Amount of fluid is within normal limits. There is an incompetent dilated internal cervical os. Amniotic fluid is seen transiting through the cervix. There is additional fluid seen within the cervix forming a collection measuring 7 x 3.8 x 6. 9 cm. This fluid collection distends the cervical canal with marked thinning of the cervical grijalva. Bulk of the amniotic fluid is contained within the collection and not within the uterus. IMPRESSION: 1. Single live intrauterine gestation as above. 2. Findings of an incompetent dilated internal cervical os and large intracervical amniotic fluid col lection. DATA REPOSITORY:
--- NOTE | 2020-07-07 15:20 | W.ED.GENAD ---
Discharge Plan Disposition Patient Disposition: [facility] INPATIENT Condition: Serious Discharge Details Clinical Impression: Incomplete miscarriage, Pneumonia Primary Care Provider: Jose Jiménez ED Provider: Soto Brooks Home Meds and New Rx's Prescriptions: No Action [place] (PF) 275 mg/1.1 mL auto-injector 275 mg SC QWEEK Qty: 4 RF: 4 pantoprazole [Protonix] 20 mg tablet,delayed release (DR/EC) 40 mg PO DAILY Qty: 30 RF: 3 methadone [Methadone Intensol] 10 mg/mL concentrate 85 mg PO DAILY RF: 0 mirtazapine 30 mg tablet 30 mg PO HS Qty: 120 RF: 5 albuterol sulfate [ProAir HFA] 90 mcg/actuation HFA aerosol inhaler 1 inh IH ONCE PRNRF: 0 Medical Decision Making 1430 -- 29-year-old female G7, P6 at 19 weeks here with vaginal bleeding after coughing for the past week. I consulted fudge candy maker on-call, Dr. Kimble, who evaluated the patient feels bleeding is slowed and patient is stable at this time. Recommend continued treatment of respiratory illness. Patient receiving neb treatment for acute asthma exacerbation. Consider pneumonia versus bronchitis. Plan to obtain chest x-ray. Initial hemoglobin lower than recent prior at 9.4. 1530??repeat hemoglobin 2 half hours later dropped to 8.7. Plan for ultrasound of the pelvis. I called OB personal care service provider and spoke with Dr. Johnson and updated her as to course. She agrees with ultrasound at this time. Chest x-ray pending. --Chest x-ray was reviewed and interpreted by radiology: Patchy bilateral lobe airspace opacification highly suspicious for pneumonia including atypical or viral etiologies. Appropriate clinical correlation should be performed. Consider atypical bacterial pneumonia. Will start doxycycline IV. Again of note, daughter recently had bronchiolitis and daughter tested negative for Covid. Covid remains on the differential. I will send Covid testing. 1615 --ultrasound reviewed and interpreted by radiology: Single viable intrauterine gestation but with incompetent dilated internal cervical os and large intracervical amniotic fluid collection. I have concern for present or impending extrusion of the amnion. A visual inspection is highly recommended. This was discussed with the quahogger who performed examination via telephone at 3:15 PM and as she was being contacted by the consulting fudge candy maker also via telephone. I called and spoke with Dr. Kimble who will see the patient again. 1700 --patient was seen by Dr. Kimble and plan will be to admit. Lab Data Lab results reviewed: Yes I reviewed the patient's lab results. Labs: Laboratory Tests Range/Units 07/07/20 07/07/20 07/07/20 12:23 12:23 12:23 WBC (4.4-10.8) 10^3/uL 11.63 H RBC (3.93-5.22) 10^6/uL 3.04 L Hgb (11.2-15.7) g/dL 9.4 L Hct (36.0-46.0) % 28.9 L MCV (80-95) fL 95.1 H MCH (27.0-33.0) pg 30.9 MCHC (32.0-36.0) % 32.5 RDW (11.7-14.6) % 13.2 Plt Count (130-400) 10^3/uL 371 MPV (8.0-11.0) fL 9.9 Immature Gran % 0.6 Neutrophils % 84.9 Lymphocytes % 10.9 Monocytes % 3.0 Eosinophils % 0.4 Basophils % 0.2 Nucleated RBC % % 0 Absolute Neutrophils (1.2-6.7) 10^3/uL 9.87 H Absolute Lymphocytes (1.2-3.4) 10^3/uL 1.27 Absolute Monocytes (0.1-0.8) 10^3/uL 0.35 Absolute Eosinophils (0.0-0.7) 10^3/uL 0.05 Absolute Basophils (0.0-0.2) 10^3/uL 0.02 Sodium (136-145) mmol/L 138 Potassium (3.5-5.1) mmol/L 3.5 Chloride (98-107) mmol/L 102 Carbon Dioxide (21.0-32.0) mmol/L 22.4 Anion Gap (3-11) mmol/L 13.6 H BUN (7-18) mg/dL 11 Creatinine (0.55-1.02) mg/dL 0.84 Estimated GFR/1.73 m2 (mL/min/1.73m2) >= 60.00 Glucose (74-106) mg/dL 109 H Calcium (8.5-10.1) mg/dL 8.7 Total Bilirubin (0.2-1.0) mg/dL 0.4 AST (15-37) U/L 27 ALT (14-59) U/L 32 Alkaline Phosphatase (46-116) U/L 610 H Total Protein (6.4-8.2) g/dL 7.4 Albumin (3.4-5.0) g/dL 2.1 L Patient ABO/Rh O Positive Antibody Screen Negative Range/Units 07/07/20 14:55 WBC (4.4-10.8) 10^3/uL 9.34 RBC (3.93-5.22) 10^6/uL 2.87 L Hgb (11.2-15.7) g/dL 8.7 L Hct (36.0-46.0) % 27.2 L MCV (80-95) fL 94.8 MCH (27.0-33.0) pg 30.3 MCHC (32.0-36.0) % 32.0 RDW (11.7-14.6) % 13.2 Plt Count (130-400) 10^3/uL 337 MPV (8.0-11.0) fL 9.8 Immature Gran % Neutrophils % Lymphocytes % Monocytes % Eosinophils % Basophils % Nucleated RBC % % Absolute Neutrophils (1.2-6.7) 10^3/uL Absolute Lymphocytes (1.2-3.4) 10^3/uL Absolute Monocytes (0.1-0.8) 10^3/uL Absolute Eosinophils (0.0-0.7) 10^3/uL Absolute Basophils (0.0-0.2) 10^3/uL Sodium (136-145) mmol/L Potassium (3.5-5.1) mmol/L Chloride (98-107) mmol/L Carbon Dioxide (21.0-32.0) mmol/L Anion Gap (3-11) mmol/L BUN (7-18) mg/dL Creatinine (0.55-1.02) mg/dL Estimated GFR/1.73 m2 (mL/min/1.73m2) Glucose (74-106) mg/dL Calcium (8.5-10.1) mg/dL Total Bilirubin (0.2-1.0) mg/dL AST (15-37) U/L ALT (14-59) U/L Alkaline Phosphatase (46-116) U/L Total Protein (6.4-8.2) g/dL Albumin (3.4-5.0) g/dL Patient ABO/Rh Antibody Screen HPI General Mode of arrival: ambulatory. Date/Time Provider Initiated Documentation: 07/07/20 12:12. Limitations to Documentation: no limitations. Information obtained by: patient. HPI Narrative: 29-year-old at 19 weeks here with chief complaint of vaginal bleeding. Patient notes has been coughing for the past 1 to 2 weeks and today developed heavy vaginal bleeding about 1 to 2 hours prior to arrival. Bleeding has slowed. She has no associate abdominal cramping. Patient notes cough is been intermittently productive and she has associated wheeze, noting asthma exacerbation. Her daughter was recently diagnosed with bronchiolitis. She denies associated fever. No vaginal trauma. Related Data Home Medications Medication Instructions Recorded Confirmed methadone 10 mg/mL oral concentrate 85 mg PO DAILY ml 11/17/19 07/07/20 mirtazapine 30 mg tablet 30 mg PO HS #120 tab-cap 12/29/19 07/07/20 albuterol sulfate 90 mcg/actuation 1 inh IH ONCE PRN gm 03/25/20 07/07/20 aerosol inhaler hydroxyprogest(PF)(preg presv) 275 275 mg SC QWEEK #4 syringe 04/19/20 07/07/20 mg/1.1 mL subcut auto-inject pantoprazole 20 mg tablet,delayed 40 mg PO DAILY #30 tab 06/20/20 07/07/20 release Previous Rx's Medication Instructions Recorded mirtazapine 30 mg tablet 30 mg PO HS #120 tab-cap 12/29/19 hydroxyprogest(PF)(preg presv) 275 275 mg SC QWEEK #4 syringe 04/19/20 mg/1.1 mL subcut auto-inject pantoprazole 20 mg tablet,delayed 40 mg PO DAILY #30 tab 06/20/20 release Allergies Allergy/AdvReac Type Severity Reaction Status Date / Time amoxicillin Allergy Mild Skin Rash Verified 07/07/20 12:07 sulfamethoxazole Allergy Mild Skin Rash Verified 07/07/20 12:07 [From Bactrim] Latex, Natural Rubber Allergy Verified 07/07/20 12:07 Penicillins Allergy Skin Rash Verified 07/07/20 12:07 acetaminophen AdvReac Severe liver Verified 07/07/20 12:07 disease General 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 IBS (irritable bowel syndrome) Long-term current use of methadone for opiate dependence Through [facility] in [facility]. 11 17 2019 current dose 85 mg Major depressive disorder, recurrent, unspecified Opioid abuse began Methadone Rx during 2016 with 20 completed weeks gestation premature rupture of membranes 11/16/2019 33 weeks 5 days EGA. Transferred to [facility] in [facility]. . F. [id number]. Marah. [place] [facility]. Upper respiratory infection Surgical History Appendectomy (~2011) Dilation and curettage with SAB age 15 Family History Father Blood clotting tendency pt does not know exact name, it was cause of . COPD (chronic obstructive pulmonary disease) Mother Diabetes Social History Smoking/Tobacco Use Status: Current every day Smoking risk assessment performed?: Yes Alcohol Intake: former Drug use: Current Sobriety Substance use type: former substance user and painkillers Seatbelt use: never Do you feel safe at home: Yes Do you feel safe in your relationship?: Yes Female Reproductive History Menstrual control method: none History History 10 Para 6 Hx # Term Pregnancies 3 Multiple births 0 Hx # Pregnancies 3 Ectopic pregnancies 0 AB induced 1 Hx Number of Living Children 6 AB spontaneous 2 Past Pregnancies Del. Date GA/Weeks # Outcome Route Wgt Sex Labor Lgth Anesthesia Location Prov Complic 01/05/10 38 No Successful vaginal 2749.904 g Female 4 hrs [facility] 12/21/10 34 No Successful vaginal 2494.758 g Female ? [facility] 06/11/12 24 No Successful vaginal 1133.981 g Male ? [facility] [place] 07/26/14 38 No Successful vaginal 3033.399 g Female ? [facility] dr. cheng 10/20/15 24 No Successful vaginal 2041.166 g Female ? dr. cheng 11/17/19 34 No Successful vaginal 2041.166 g Female quick labor and , no meds [place], [place] Delivery Date: 01/05/10 w/o c/o. [facility] Delivery Date: 12/21/10 sga thus iol, w/o c/o. [facility] Delivery Date: 06/11/12 appendectomy @ [facility] [place] then labor then delivery. [facility] Delivery Date: 07/26/14 term spontaneous [facility] Delivery Date: 10/20/15 circlage spontaneous labor 6cm on admission, delivered at [facility], yet to [facility] [place] 2`to infection , a&w. [facility] Delivery Date: 11/17/19 PPROM, transferred to [facility], delivered the next day. Izabella Pardo Exam Const General: cooperative and no acute distress HENPR Mouth: moist mucous membranes Eyes Conjunctivae: normal conjunctivae Sclera: normal sclerae Neck Neck: trachea midline and supple Resp Effort & Inspection: normal respiratory effort and able to speak in complete sentences Auscultation: rales bilaterally, no rhonchi and wheezes expiratory wheezes Cardio Rate: regular rate and not tachycardic Rhythm: regular rhythm GI Palpation: soft, not firm, no guarding, no masses, not rigid and nontender Skin General skin exam: no rashes or lesions noted Neuro General: patient alert, patient awake, patient oriented x3 and tone normal Extrem General: no edema Psych Appearance: grossly normal Mental Status: mental status grossly normal Course Vital Signs Vital signs: Vital Signs Temperature 36.5 C 07/07/20 12:04 Pulse 82 07/07/20 12:04 Respiratory Rate 20 07/07/20 12:04 Blood Pressure 112/52 L 07/07/20 12:04 Pulse Oximetry 98 07/07/20 12:04 Temperature 36.5 C 11/05/20 14:54 Temperature Source Temporal Artery Scan 07/07/20 14:54 Pulse 71 07/07/20 14:54 Respiratory Rate 17 07/07/20 14:54 Respiratory Effort Non-Labored 07/07/20 12:08 Blood Pressure 97/50 L 07/07/20 14:54 Pulse Oximetry 96 07/07/20 14:54 Oxygen Delivery Method Room Air 07/07/20 14:54 Oxygen Flow Rate 0 07/07/20 14:54 Pain Level 0 07/07/20 14:54 Lab/Test Results Lab/Test Results: Laboratory Tests Range/Units 07/07/20 07/07/20 07/07/20 12:23 12:23 12:23 WBC (4.4-10.8) 10^3/uL 11.63 H RBC (3.93-5.22) 10^6/uL 3.04 L Hgb (11.2-15.7) g/dL 9.4 L Hct (36.0-46.0) % 28.9 L MCV (80-95) fL 95.1 H MCH (27.0-33.0) pg 30.9 MCHC (32.0-36.0) % 32.5 RDW (11.7-14.6) % 13.2 Plt Count (130-400) 10^3/uL 371 MPV (8.0-11.0) fL 9.9 Immature Gran % 0.6 Neutrophils % 84.9 Lymphocytes % 10.9 Monocytes % 3.0 Eosinophils % 0.4 Basophils % 0.2 Nucleated RBC % % 0 Absolute Neutrophils (1.2-6.7) 10^3/uL 9.87 H Absolute Lymphocytes (1.2-3.4) 10^3/uL 1.27 Absolute Monocytes (0.1-0.8) 10^3/uL 0.35 Absolute Eosinophils (0.0-0.7) 10^3/uL 0.05 Absolute Basophils (0.0-0.2) 10^3/uL 0.02 Sodium (136-145) mmol/L 138 Potassium (3.5-5.1) mmol/L 3.5 Chloride (98-107) mmol/L 102 Carbon Dioxide (21.0-32.0) mmol/L 22.4 Anion Gap (3-11) mmol/L 13.6 H BUN (7-18) mg/dL 11 Creatinine (0.55-1.02) mg/dL 0.84 Estimated GFR/1.73 m2 (mL/min/1.73m2) >= 60.00 Glucose (74-106) mg/dL 109 H Calcium (8.5-10.1) mg/dL 8.7 Total Bilirubin (0.2-1.0) mg/dL 0.4 AST (15-37) U/L 27 ALT (14-59) U/L 32 Alkaline Phosphatase (46-116) U/L 610 H Total Protein (6.4-8.2) g/dL 7.4 Albumin (3.4-5.0) g/dL 2.1 L Patient ABO/Rh O Positive Antibody Screen Negative Range/Units 07/07/20 14:55 WBC (4.4-10.8) 10^3/uL 9.34 RBC (3.93-5.22) 10^6/uL 2.87 L Hgb (11.2-15.7) g/dL 8.7 L Hct (36.0-46.0) % 27.2 L MCV (80-95) fL 94.8 MCH (27.0-33.0) pg 30.3 MCHC (32.0-36.0) % 32.0 RDW (11.7-14.6) % 13.2 Plt Count (130-400) 10^3/uL 337 MPV (8.0-11.0) fL 9.8 Immature Gran % Neutrophils % Lymphocytes % Monocytes % Eosinophils % Basophils % Nucleated RBC % % Absolute Neutrophils (1.2-6.7) 10^3/uL Absolute Lymphocytes (1.2-3.4) 10^3/uL Absolute Monocytes (0.1-0.8) 10^3/uL Absolute Eosinophils (0.0-0.7) 10^3/uL Absolute Basophils (0.0-0.2) 10^3/uL Sodium (136-145) mmol/L Potassium (3.5-5.1) mmol/L Chloride (98-107) mmol/L Carbon Dioxide (21.0-32.0) mmol/L Anion Gap (3-11) mmol/L BUN (7-18) mg/dL Creatinine (0.55-1.02) mg/dL Estimated GFR/1.73 m2 (mL/min/1.73m2) Glucose (74-106) mg/dL Calcium (8.5-10.1) mg/dL Total Bilirubin (0.2-1.0) mg/dL AST (15-37) U/L ALT (14-59) U/L Alkaline Phosphatase (46-116) U/L Total Protein (6.4-8.2) g/dL Albumin (3.4-5.0) g/dL Patient ABO/Rh Antibody Screen
--- NOTE | 2020-07-07 16:11 | DI.VRAD_ITS ---
PROCEDURE INFORMATION: Exam: XR Chest, 1 View Exam date and time: 07/07/2020 4:02 PM Age: 29 years old Clinical indication: Cough and shortness of breath; Patient HX: Cough, SOB TECHNIQUE: Imaging protocol: XR of the chest Views: 1 view. COMPARISON: No relevant prior studies available. FINDINGS: Lungs: Mild shallow inspiration but with disproportionately increased opacification in right lower lobe and with patchy, more subtle opacification left lower lobe. Pleural space: Normal. Heart/Mediastinum: Normal heart and cardiomediastinal silhouette. Vasculature: Normal pulmonary vessel caliber. Normal aorta. Bones/joints: The bones are intact. Other findings: Mild lordotic patient positioning. IMPRESSION: Patchy bilateral lobe airspace opacification highly suspicious for pneumonia including atypical or viral etiologies. Appropriate clinical correlation should be performed. Dictated and Authenticated by: Anselmo Ackerman MD. Ordering:ROSALES Valera MD
--- NOTE | 2020-07-07 16:22 | DI.VRAD_ITS ---
Addendum created by Anselmo Ackerman MD on 07/07/2020 6:06:49 PM EST: The nature of the abnormalities and findings was discussed with the sports book writer who performed the examination via telephone at 3:15 p.m. and as she was being contacted by the consulting liquor stores and agencies supervisor, also via telephone. Initial report created on 07/07/2020 4:22:36 PM EST: PROCEDURE INFORMATION: Exam: US , Limited Exam date and time: 07/07/2020 3:58 PM Age: 29 years old Clinical indication: Pain; Other: Cramping \T\ bleeding; Gestational age or lmp: 20w, 0d; TECHNIQUE: Imaging protocol: Real-time ultrasound of the maternal uterus with image documentation. Exam focused on the clinical indication. COMPARISON: OB US 1ST TRIMESTER TRANSABD*P 04/20/2015 10:50 PM FINDINGS: Gestation: There is a single intrauterine gestation and the heart rate is 152 bpm. Cervix is nearly completely effaced and there is amniotic fluid transiting through the cervix which measures up to 0.6 cm wide. Additional fluid is present within the cervix itself forming a collection measuring 7 x 3.8 x 6.9 cm and severely distending the cervical canal and markedly thinning the cervical grijalva. The bulk of the amniotic fluid is contained in this collection and not within the uterus. IMPRESSION: Single viable intrauterine gestation but with incompetent dilated internal cervical os and large intracervical amniotic fluid collection. I have concern for present or impending extrusion of the amnion. A visual inspection is highly recommended. This was discussed with the sports book writer who performed the examination via telephone at 3:15 p.m. and as she was being contacted by the consulting liquor stores and agencies supervisor, also via telephone. Dictated and Authenticated by: Anselmo Ackerman MD. Ordering:ROSALES Valera MD
[2020-07-07] MEDS: DOXYCYCLINE 100 MG in Normal Saline 100 ML IVPB (16:38)
--- NOTE | 2020-07-07 18:19 | W.PM.HP.N ---
Date of service: 07/07/20 Time of Service: 18:19 Assessment and Plan Assessment and plan (1) with 20 completed weeks gestation: Status: Acute Assessment and plan: Patient is a 29-year-old 10 para 3-3-3-6 at 20 weeks gestation. She has had of poor obstetric history with numerous deliveries and previous early delivery after cerclage. She was initially seen and examined in the emergency department today for respiratory symptoms and an atypical pneumonia. Covid testing is pending. She had findings of prolapse, hourglass membranes on ultrasound with cervical dilation and breech presentation with a foot within the cervical canal. Due to this significant obstetric complication, patient was admitted to the birthing center. We do lengthy conversation with the patient and her partner regarding the poor obstetric outcome and the necessity to treat patient aggressively for her pneumonia. As per the patient's request, [facility] maternal- medicine was consulted. After lengthy conversation with maternal- medicine they have no bed availability on their center and at this point, have no further treatment modalities other than conservative watchful waiting of this at this point. It is imperative that we monitor very closely for signs and symptoms of infection. Patient and her partner understand this. They do understand that there is a significant chance of poor obstetric outcomes. They also understand that at 20 weeks is nonviable. We will monitor serial laboratory studies for evidence of worsening or elevated white blood cell count (2) Pneumonia: Status: Acute Assessment and plan: Due to the atypical pattern of her pneumonia on chest x-ray, she will continue on doxycycline with consultation from internal medicine. She will have cough suppressants, breathing treatments, and symptomatic therapeutics. (3) Threatened miscarriage: Status: Acute Assessment and plan: We will continue to monitor with heart tones as indicated. If patient has spontaneous rupture of membranes, Pitocin augmentation of labor may be undertaken. Patient does have a history of hemorrhage and is at risk for this due to early gestation, potential for infection, and difficulty with placental separation. (4) Incompetent cervix: Status: Acute Assessment and plan: Hourglass membranes we will continue to monitor for progression and/or rupture (5) Abnormalities of amnion: Status: Acute (6) Smoker: Status: Chronic Assessment and plan: Nicotine patch for nicotine replacement (7) Anxiety and depression: Status: Chronic Assessment and plan: Will a monitor closely for worsening anxiety or depression and assist with sleep aid. (8) Long-term current use of methadone for opiate dependence: Status: Acute Assessment and plan: She will continue her methadone dose as per outpatient at 85 mg on a daily basis. She is in the [facility] program. She does have her take her medication which she will tonight. History of Present Illness History of Present Illness Chief Complaint: Atypical Pnuemonia, Prolapsed membranes at 20 weeks Narrative: Patient is a 29-year-old 10 para 3-3-3-6 well-known to the [facility]. She is currently at 20 weeks gestation. She presented to the emergency department today with complaints of cough, congestion, mild shortness of breath. Incidentally she had an episode of vaginal bleeding with coughing. She has had sick contacts at home and that her daughter had been recently admitted to [facility] with bronchiolitis. Patient herself has a known history of asthma complicating her respiratory status. She has no known Covid contacts and has not traveled any great distance. She denies fevers or chills. She denies abdominal pain associated with her vaginal bleeding or crampiness. During her evaluation in the emergency department which included baseline laboratory studies, chest x-ray, and obstetric ultrasound she was noted to have an atypical appearing pneumonia on chest x-ray and on ultrasound exam consistent with hourglassing membranes through the cervix with cervical dilation of approximately 1 cm and foot present within the dilated cervix. At this point cardiac activity is noted. Placenta was still noted to be fundal. Review of Systems Constitutional Constitutional: Reports as per HPI, Denies chills, Reports difficulty sleeping, Denies fever(s) and Denies night sweats Eyes Eyes: Denies blurry vision and Denies change in vision ENT Ears, Nose, Mouth, and Throat: Denies change in voice, Denies dry mouth and Reports nasal congestion Cardiovascular Cardiovascular: Reports system reviewed and no additional complaints, except as documented, Denies chest pain and Denies syncope Respiratory Respiratory: Reports chest congestion, Reports cough and Reports wheezing Gastrointestinal Gastrointestinal: Reports system reviewed and no additional complaints, except as documented Genitourinary Genitourinary: Reports abnormal vaginal bleeding Musculoskeletal Musculoskeletal: Reports system reviewed and no additional complaints, except as documented Neurologic Neurologic: Denies syncope Psychiatric Psychiatric: Reports panic attacks Allergic/Immunologic Allergic/Immunologic: Reports wheezing PFSH Medical History Anxiety disorder, unspecified Chronic pelvic pain in female since of her son 06/2012 Constipation Contraception (10/21/15) depoprovera after at 33w. IBS (irritable bowel syndrome) Long-term current use of methadone for opiate dependence Through [facility] in [facility]. 11 17 2019 current dose 85 mg Major depressive disorder, recurrent, unspecified Opioid abuse began Methadone Rx during 2016 with 20 completed weeks gestation premature rupture of membranes 11/16/2019 33 weeks 5 days EGA. Transferred to [facility] in [facility]. . F. 4lb8oz. Marah. [place] [facility]. Upper respiratory infection Surgical History Appendectomy (~2011) Dilation and curettage with SAB age 15 Family History Father Blood clotting tendency pt does not know exact name, it was cause of . COPD (chronic obstructive pulmonary disease) Mother Diabetes Social History Smoking/Tobacco Use Status: Current every day Tobacco Type: cigarettes Smoking risk assessment performed?: Yes Alcohol Intake: never Drug use: Current Sobriety Substance use type: former substance user and painkillers Seatbelt use: never Do you feel safe at home: Yes Do you feel safe in your relationship?: Yes Female Reproductive History Menstrual control method: none History History 10 Para 6 Hx # Term Pregnancies 3 Multiple births 0 Hx # Pregnancies 3 Ectopic pregnancies 0 AB induced 1 Hx Number of Living Children 6 AB spontaneous 2 Past Pregnancies Del. Date GA/Weeks # Outcome Route Wgt Sex Labor Lgth Anesthesia Location Prov Complic 01/05/10 38 No Successful vaginal 6 lb 1 oz Female [facility] hrs [facility] 12/21/10 34 No Successful vaginal 5 lb 8 oz Female ? [facility] 06/11/12 24 No Successful vaginal 2 lb 8 oz Male ? [facility] [place] 07/26/14 38 No Successful vaginal 6 lb 11 oz Female ? [facility] dr[facility] cheng 10/20/15 24 No Successful vaginal 4 lb 8 oz Female ? dr. cheng 11/17/19 34 No Successful vaginal 4 lb 8 oz Female quick labor and , no meds [place] Delivery Date: 01/05/10 w/o c/o. [facility] Delivery Date: 12/21/10 sga thus iol, w/o c/o. [facility]ILLAR Delivery Date: 06/11/12 appendectomy @ [facility] [place] then labor then delivery. [facility] Delivery Date: 07/26/14 term spontaneous [facility] Delivery Date: 10/20/15 circlage spontaneous labor 6cm on admission, delivered at [facility], yet to [facility] [place] 2`to infection , a&w. [facility]ILLAR Delivery Date: 11/17/19 PPROM, transferred to [facility], delivered the next day. Izabella Pardo Home Medications and Allergies Home Medications Medication Instructions Recorded Confirmed Type methadone 10 mg/mL oral concentrate 85 mg PO DAILY ml 11/17/19 07/07/20 History mirtazapine 30 mg tablet 30 mg PO HS #120 tab-cap 12/29/19 07/07/20 Rx albuterol sulfate 90 mcg/actuation 1 inh IH ONCE PRN gm 03/25/20 07/07/20 History aerosol inhaler hydroxyprogest(PF)(preg presv) 275 275 mg SC QWEEK #4 syringe 04/19/20 07/07/20 Rx mg/1.1 mL subcut auto-inject pantoprazole 20 mg tablet,delayed 40 mg PO DAILY #30 tab 06/20/20 07/07/20 Rx release Allergies Allergy/AdvReac Type Severity Reaction Status Date / Time amoxicillin Allergy Mild Skin Rash Verified 07/07/20 12:07 sulfamethoxazole Allergy Mild Skin Rash Verified 07/07/20 12:07 [From Bactrim] Latex, Natural Rubber Allergy Verified 07/07/20 12:07 Penicillins Allergy Skin Rash Verified 07/07/20 12:07 acetaminophen AdvReac Severe liver Verified 07/07/20 12:07 disease Exam Const General: cooperative, anxious and ill appearing Nutritional Appearance: average body habitus Orientation: alert and oriented x3 HENMT Head: normal to inspection Face and sinus: normal facial exam Eyes General: appearance normal, both eyes and all related structures Resp Effort & Inspection: normal respiratory effort and able to speak in complete sentences Auscultation: bronchial breath sounds, crackles bilaterally, rales bilaterally and wheezes Cardio Rate: regular rate Rhythm: regular rhythm Heart Sounds: S1 normal and S2 normal GI Inspection: normal to inspection Palpation: not firm, no guarding and no masses OB/External & Speculum: deferred Other: Abdomen gravid. Fundus at the umbilicus. Speculum and bimanual exam deferred due to hourglass membranes Skin General skin exam: no rashes or lesions noted Neuro General: patient alert and patient oriented x3 Cranial Nerves: CN's II-XI intact bilaterally Cognition: normal cognition Speech: speech normal Extrem General: no clubbing, cyanosis or edema Results Labs Result diagrams: 07/07/20 14:55 07/07/20 12:23 Labs: Laboratory Results - last 24 hr 07/07/20 07/07/20 07/07/20 12:23 12:23 12:23 WBC 11.63 H RBC 3.04 L Hgb 9.4 L Hct 28.9 L MCV 95.1 H MCH 30.9 MCHC 32.5 RDW 13.2 Plt Count 371 MPV 9.9 Immature Gran % 0.6 Neutrophils % 84.9 Lymphocytes % 10.9 Monocytes % 3.0 Eosinophils % 0.4 Basophils % 0.2 Nucleated RBC % 0 Absolute Neutrophils 9.87 H Absolute Lymphocytes 1.27 Absolute Monocytes 0.35 Absolute Eosinophils 0.05 Absolute Basophils 0.02 Sodium 138 Potassium 3.5 Chloride 102 Carbon Dioxide 22.4 Anion Gap 13.6 H BUN 11 Creatinine 0.84 Estimated GFR/1.73 m2 >= 60.00 Glucose 109 H Calcium 8.7 Total Bilirubin 0.4 AST 27 ALT 32 Alkaline Phosphatase 610 H Total Protein 7.4 Albumin 2.1 L Patient ABO/Rh O Positive Antibody Screen Negative 07/07/20 14:55 WBC 9.34 RBC 2.87 L Hgb 8.7 L Hct 27.2 L MCV 94.8 MCH 30.3 MCHC 32.0 RDW 13.2 Plt Count 337 MPV 9.8 Immature Gran % Neutrophils % Lymphocytes % Monocytes % Eosinophils % Basophils % Nucleated RBC % Absolute Neutrophils Absolute Lymphocytes Absolute Monocytes Absolute Eosinophils Absolute Basophils Sodium Potassium Chloride Carbon Dioxide Anion Gap BUN Creatinine Estimated GFR/1.73 m2 Glucose Calcium Total Bilirubin AST ALT Alkaline Phosphatase Total Protein Albumin Patient ABO/Rh Antibody Screen Last Vital Signs Temp 98.1 F 07/07/20 17:38 Pulse 90 07/07/20 17:38 Resp 20 07/07/20 17:38 BP 101/62 07/07/20 17:38 Pulse Ox 97 07/07/20 17:38 COVID-19 Screening Have you,or household,traveled outside [place] in last 14 days?: No Had IN PERSON contact w/suspected or confirmed C-19 person: No
[2020-07-07] MEDS: Nicotine 21 MG/24 HR PATCH TD (19:25)
[2020-07-07] MEDS: guaiFENesin/D-METHORPHAN HB 5 ML CUP 10 ML PO (21:14)
[2020-07-07] MEDS: Lactated Ringers 500 ML IV (21:30)
--- NOTE | 2020-07-07 21:38 | W.PM.OBNL1 ---
Date of service: 07/07/20 Time of Service: 21:38 Informed Consent Informed Consent: Augmentation of Labor Pelvic Exam Dilation: 1.5 Effacement (%): 50 station: -4 Cervix Position: mid Consistency: medium Vaginal Exam Presentation: Unknown Pooling: Positive Contractions Intensity: Moderate Assessment and Plan Assessment and plan (1) Abnormalities of amnion: Status: Acute Assessment and plan: Prolapsed membranes with SROM in a non-viable fetus. Now with ROM will place epidural for pain control and augmentation of labor. Patient and understand status change (2) Incompetent cervix: Status: Acute Objective Abnormal lab results 07/07/20 07/07/20 07/07/20 Range/Units 12:23 12:23 14:55 WBC 11.63 H (4.4-10.8) 10^3/uL RBC 3.04 L 2.87 L (3.93-5.22) 10^6/uL Hgb 9.4 L 8.7 L (11.2-15.7) g/dL Hct 28.9 L 27.2 L (36.0-46.0) % MCV 95.1 H (80-95) fL Absolute Neutrophils 9.87 H (1.2-6.7) 10^3/uL Anion Gap 13.6 H (3-11) mmol/L Glucose 109 H (74-106) mg/dL Alkaline Phosphatase 610 H (46-116) U/L Albumin 2.1 L (3.4-5.0) g/dL Temp Pulse Resp BP Pulse Ox 98.1 F 90 20 101/62 97 07/07/20 17:38 07/07/20 17:38 07/07/20 17:38 07/07/20 17:38 07/07/20 17:38 Laboratory Results WBC 9.34 10^3/uL (4.4-10.8) 07/07/20 14:55 RBC 2.87 10^6/uL (3.93-5.22) L 07/07/20 14:55 Hgb 8.7 g/dL (11.2-15.7) L 07/07/20 14:55 Hct 27.2 % (36.0-46.0) L 07/07/20 14:55 MCV 94.8 fL (80-95) 07/07/20 14:55 MCH 30.3 pg (27.0-33.0) 07/07/20 14:55 MCHC 32.0 % (32.0-36.0) 07/07/20 14:55 RDW 13.2 % (11.7-14.6) 07/07/20 14:55 Plt Count 337 10^3/uL (130-400) 07/07/20 14:55 MPV 9.8 fL (8.0-11.0) 07/07/20 14:55 Immature Gran % 0.6 07/07/20 12:23 Neutrophils % 84.9 07/07/20 12:23 Lymphocytes % 10.9 07/07/20 12:23 Monocytes % 3.0 07/07/20 12:23 Eosinophils % 0.4 07/07/20 12:23 Basophils % 0.2 07/07/20 12:23 Nucleated RBC % 0 % 07/07/20 12:23 Absolute Neutrophils 9.87 10^3/uL (1.2-6.7) H 07/07/20 12:23 Absolute Lymphocytes 1.27 10^3/uL (1.2-3.4) 07/07/20 12:23 Absolute Monocytes 0.35 10^3/uL (0.1-0.8) 07/07/20 12:23 Absolute Eosinophils 0.05 10^3/uL (0.0-0.7) 07/07/20 12:23 Absolute Basophils 0.02 10^3/uL (0.0-0.2) 07/07/20 12:23 Sodium 138 mmol/L (136-145) 07/07/20 12:23 Potassium 3.5 mmol/L (3.5-5.1) 07/07/20 12:23 Chloride 102 mmol/L (98-107) 07/07/20 12:23 Carbon Dioxide 22.4 mmol/L (21.0-32.0) 07/07/20 12:23 Anion Gap 13.6 mmol/L (3-11) H 07/07/20 12:23 BUN 11 mg/dL (7-18) 07/07/20 12:23 Creatinine 0.84 mg/dL (0.55-1.02) 07/07/20 12:23 Estimated GFR/1.73 m2 >= 60.00 (mL/min/1.73m2) 07/07/20 12:23 Glucose 109 mg/dL (74-106) H 07/07/20 12:23 Calcium 8.7 mg/dL (8.5-10.1) 07/07/20 12:23 Total Bilirubin 0.4 mg/dL (0.2-1.0) 07/07/20 12:23 AST 27 U/L (15-37) 07/07/20 12:23 ALT 32 U/L (14-59) 07/07/20 12:23 Alkaline Phosphatase 610 U/L (46-116) H 07/07/20 12:23 Total Protein 7.4 g/dL (6.4-8.2) 07/07/20 12: Albumin 2.1 g/dL (3.4-5.0) L 07/07/20 12:23 Patient ABO/Rh O Positive 07/07/20 12: Antibody Screen Negative 07/07/20 12:23 Subjective Interval history since last seen: Patient seen with increased pain and pressure. Patient was up to the bathroom with membranes prolapsed out of the vaginal. Patient escorted back to bed. Exam with bulging bag of membranes through the cervix. Cervical exam with cervix 1-2 cm. Cannot feel presenting part. Some relief from pain with decrease in fluid. Discussed the new condition with patient and . Would like pain control with epidural. Anesthesia notified. Will augment when pain control is adequate Interventions Pain Management/ Augmentation , Pitocin rate (mU/min): 0 Will begin cytotec for second trimester induction of non-viable fetus. Supportive care for family . Results Hemoglobin/Hematocrit: Hgb 8.7 g/dL (11.2-15.7) L 07/07/20 14:55 Hct 27.2 % (36.0-46.0) L 07/07/20 14:55 Abnormal Lab Findings: Abnormal Labs 07/07/20 07/07/20 07/07/20 12:23 12:23 14:55 WBC 11.63 H RBC 3.04 L 2.87 L Hgb 9.4 L 8.7 L Hct 28.9 L 27.2 L MCV 95.1 H Absolute Neutrophils 9.87 H Anion Gap 13.6 H Glucose 109 H Alkaline Phosphatase 610 H Albumin 2.1 L
--- NOTE | 2020-07-07 22:14 | NUR.NOTE ---
Nursing Note: Tyler Andrew CRNA in room explaining epidural procedure
--- NOTE | 2020-07-07 22:31 | NUR.NOTE ---
Nursing Note: Epidural placement in progress
--- NOTE | 2020-07-07 22:32 | NUR.NOTE ---
Nursing Note: test dose given
--- NOTE | 2020-07-07 22:43 | NUR.NOTE ---
Nursing Note:5 ml bolus given by SCHOOL SUPERINTENDENT
--- NOTE | 2020-07-07 22:49 | NUR.NOTE ---
Nursing Note: Pt supine, feeling less pain
[2020-07-07] MEDS: FentaNYL/ROPIvacaine 2 mcg/ml and 0.1% 200 ML CADD Cassette EP (22:58)
[2020-07-08] VITALS (8 sets, daily range): BP systolic 107–132; BP diastolic 53–69; PULSE 57–75; RESP 14; TEMP 37–37.1; O2SAT 97
[2020-07-08] MEDS: miSOPROStol 200 MCG TAB 400 MCG SL (01:00)
--- NOTE | 2020-07-08 01:11 | NUR.NOTE ---
Pt given teaching re potential side effects of Misoprostol, and variable length of time it may take for it to work based on early gestational age.Nursing Note:
--- NOTE | 2020-07-08 02:15 | W.PM.OBNL1 ---
Date of service: 07/08/20 Time of Service: 02:15 Informed Consent Informed Consent: Augmentation of Labor Assessment and Plan Assessment and plan (1) Abnormalities of amnion: Status: Acute Assessment and plan: Prolapsed membranes with SROM at 20 weeks. Increased pain. Patient refusing cervical check at this point. Anesthesia notified and present at bedside to re-evaluate epidural. Vital signs are stable. [place] placed for copious clear yellow urine (2) Incompetent cervix: Status: Acute Assessment and plan: Augmentation of labor with SL Misoprostil at 400 mcg q 4 hour hours (3) Pneumonia: Status: Acute Assessment and plan: Stable respiratory status on IV antibiotics, doxycycline Objective Abnormal lab results 07/07/20 07/07/20 07/07/20 Range/Units 12:23 12:23 14:55 WBC 11.63 H (4.4-10.8) 10^3/uL RBC 3.04 L 2.87 L (3.93-5.22) 10^6/uL Hgb 9.4 L 8.7 L (11.2-15.7) g/dL Hct 28.9 L 27.2 L (36.0-46.0) % MCV 95.1 H (80-95) fL Absolute Neutrophils 9.87 H (1.2-6.7) 10^3/uL Anion Gap 13.6 H (3-11) mmol/L Glucose 109 H (74-106) mg/dL Alkaline Phosphatase 610 H (46-116) U/L Albumin 2.1 L (3.4-5.0) g/dL Temp Pulse Resp BP Pulse Ox 98.8 F 64 20 107/60 96 07/08/20 01:52 07/08/20 00:58 07/07/20 17:38 07/08/20 00:58 07/07/20 23:25 Laboratory Results WBC 9.34 10^3/uL (4.4-10.8) 07/07/20 14:55 RBC 2.87 10^6/uL (3.93-5.22) L 07/07/20 14:55 Hgb 8.7 g/dL (11.2-15.7) L 07/07/20 14:55 Hct 27.2 % (36.0-46.0) L 07/07/20 14:55 MCV 94.8 fL (80-95) 07/07/20 14:55 MCH 30.3 pg (27.0-33.0) 07/07/20 14:55 MCHC 32.0 % (32.0-36.0) 07/07/20 14:55 RDW 13.2 % (11.7-14.6) 07/07/20 14:55 Plt Count 337 10^3/uL (130-400) 07/07/20 14:55 MPV 9.8 fL (8.0-11.0) 07/07/20 14:55 Immature Gran % 0.6 07/07/20 12:23 Neutrophils % 84.9 07/07/20 12:23 Lymphocytes % 10.9 07/07/20 12:23 Monocytes % 3.0 07/07/20 12:23 Eosinophils % 0.4 07/07/20 12:23 Basophils % 0.2 07/07/20 12:23 Nucleated RBC % 0 % 07/07/20 12:23 Absolute Neutrophils 9.87 10^3/uL (1.2-6.7) H 07/07/20 12:23 Absolute Lymphocytes 1.27 10^3/uL (1.2-3.4) 07/07/20 12:23 Absolute Monocytes 0.35 10^3/uL (0.1-0.8) 07/07/20 12:23 Absolute Eosinophils 0.05 10^3/uL (0.0-0.7) 07/07/20 12:23 Absolute Basophils 0.02 10^3/uL (0.0-0.2) 07/07/20 12:23 Sodium 138 mmol/L (136-145) 07/07/20 12:23 Potassium 3.5 mmol/L (3.5-5.1) 07/07/20 12:23 Chloride 102 mmol/L (98-107) 07/07/20 12:23 Carbon Dioxide 22.4 mmol/L (21.0-32.0) 07/07/20 12:23 Anion Gap 13.6 mmol/L (3-11) H 07/07/20 12:23 BUN 11 mg/dL (7-18) 07/07/20 12:23 Creatinine 0.84 mg/dL (0.55-1.02) 07/07/20 12:23 Estimated GFR/1.73 m2 >= 60.00 (mL/min/1.73m2) 07/07/20 12:23 Glucose 109 mg/dL (74-106) H 07/07/20 12:23 Calcium 8.7 mg/dL (8.5-10.1) 07/07/20 12:23 Total Bilirubin 0.4 mg/dL (0.2-1.0) 07/07/20 12:23 AST 27 U/L (15-37) 07/07/20 12:23 ALT 32 U/L (14-59) 07/07/20 12:23 Alkaline Phosphatase 610 U/L (46-116) H 07/07/20 12:23 Total Protein 7.4 g/dL (6.4-8.2) 07/07/20 12:23 Albumin 2.1 g/dL (3.4-5.0) L 07/07/20 12:23 Patient ABO/Rh O Positive 07/07/20 12:23 Antibody Screen Negative 07/07/20 12:23 Subjective Interval history since last seen: Patient seen with increasing pain and cramping. Results Hemoglobin/Hematocrit: Hgb 8.7 g/dL (11.2-15.7) L 07/07/20 14:55 Hct 27.2 % (36.0-46.0) L 07/07/20 14:55 Abnormal Lab Findings: Abnormal Labs 07/07/20 07/07/20 07/07/20 12:23 12:23 14:55 WBC 11.63 H RBC 3.04 L 2.87 L Hgb 9.4 L 8.7 L Hct 28.9 L 27.2 L MCV 95.1 H Absolute Neutrophils 9.87 H Anion Gap 13.6 H Glucose 109 H Alkaline Phosphatase 610 H Albumin 2.1 L
[2020-07-08 02:38] LABS: *AMPHETAMINES SCREEN URINE Negative (Negative); *BARBITURATES SCREEN URINE Negative (Negative); *BENZODIAZEPINES SCREEN URINE Negative (Negative); Cannabinoids THC Negative (Negative); Cocaine Screen,Urine Negative (Negative); METHADONE URINE SCREEN POSITIVE (Negative); OPIATES URINE SCREEN Negative (Negative)
[2020-07-08 02:39] LABS: Tricyclic Antidepressants Negative (Negative)
[2020-07-08] MEDS: guaiFENesin/D-METHORPHAN HB 5 ML CUP 10 ML PO (02:57)
--- NOTE | 2020-07-08 02:59 | W.OBDELIVERY ---
Date of service: 07/08/20 Time of Service: 02:59 OB Labor/ Delivery Information Baby A Delivery Delivery Method: Spontaneaous Presentation: Footling Breech Breech Position: Double Footling Cord Description-Baby A: 3 Vessels Amniotic Fluid: Clear Estimated Blood Loss: 50 Delivery Outcome: Stillborn Infant Transferred: Remains with Mother Providers Doctor: Jeannette Kimble Labor/Delivery Information Number of Babies in Womb: 1 Steroids Given: None Reason Steroids Not Administered: N/A Group Beta Strep: N/A Antibiotics Administered: No Rubella Status: Immune Blood Type: O+ Varicella Immunity: Immune Born En Route: No Maternal Complications: Premature Rupture of Membranes and Other (Prolapsed membranes at 20 weeks, SROM) Stages of Labor Placenta Cultured: Yes Placenta Status: Delivered Baby A Infant Gender: Female Gestational Status: (<34 wks) Score-1 Minute Interval(Baby A) Heart Rate-1 minute: Absent Muscle Tone-1 minute: Limp Reflex Response-1 minute: No Response Color-1 minute: Pallor or Cyanosis
--- NOTE | 2020-07-08 03:15 | PLAC_PTH ---
PATIENT: Gabriela Hines LOC: OBS U#:[id number] AGE/SX: 29/F ROOM: OBS.301 RE07/07/[address]: Jeannette Kimble DO : 1990 BED: A DIS: 07/08/2020 SPEC #: [id number] RECD: 07/08/20 09:25 STATUS: SOUT REQ #: [id number] KVNG: 07/08/20 03:[address]: Jeannette Kimble DEPT: Surgical Specimen RECD BY: Rebeca Ramirez ENTERED: 07/08/20 09:26 SP TYPE: PLAC OTHR DR: Jose Jiménez DO Tissues: 1 - PLACENTA (NOT 3RD TRIMESTER) Procedures: GROSS AND MICRO LEVEL 4 Comments: [id number]
[2020-07-08 06:56] LABS: HCT 25.5 % (36.0-46.0); HGB 8.4 g/dL (11.2-15.7); MCH 30.8 pg (27.0-33.0); MCHC 32.9 % (32.0-36.0); MCV 93.4 fL (80-95); MPV 10.2 fL (8.0-11.0); Platelet Count 382 10^3/uL (130-400); RBC 2.73 10^6/uL (3.93-5.22); RDW 13.2 % (11.7-14.6); RDW-SD 44.9 fL; WBC 9.85 10^3/uL (4.4-10.8)
--- NOTE | 2020-07-08 07:19 | W.PM.OBPNV1 ---
Date of service: 07/08/20 Time of Service: 07:19 Assessment and Plan Assessment and plan (1) Spontaneous vaginal delivery: Status: Acute Assessment and plan: Patient is day #0 status post spontaneous vaginal delivery of a stillborn 20-week female . From an obstetric standpoint she is doing well. Lochia is physiologic. Her abdomen is soft and nontender she is grieving appropriately (2) Abnormalities of amnion: Status: Acute (3) Incompetent cervix: Status: Acute (4) Long-term current use of methadone for opiate dependence: Status: Acute (5) Pneumonia: Status: Acute Assessment and plan: Chest x-ray consistent with atypical pneumonia. Patient will receive her second dose of clindamycin this morning and be discharged home on oral antimicrobials. COVID-19 testing is still pending. She will also have symptomatic relief with Robitussin, her inhalers, and Mucinex. Subjective Subjective Interval history: Patient seen and examined this morning. She states that she is tired and having some lower abdominal crampiness. Significantly better since the time of her delivery. Lochia is physiologic. Her breathing is well. She continues to have a productive cough and remains afebrile Patient's Mood: Appropriate for circumstance Narrative: Patient and her spend significant time holding their stillborn daughter through the morning. At this point they are resting comfortably. They have been given opportunity to ask questions and have supportive care. sales and marketing manager will be involved in decision making this morning such as home, and disposition of baby. Exam Physical Exam Vital signs: Temp Pulse Resp BP Pulse Ox 98.8 F 75 20 111/53 L 96 07/08/20 02:25 07/08/20 03:02 07/07/20 17:38 07/08/20 03:02 07/07/20 23:25 HEENT Exam HEENT Exam: Normal Neck Exam Neck Exam: Normal Detailed Respiratory Exam Respiratory: Present rhonchi and wheezes Cardiovascular Exam Cardiovascular Exam: Normal DetailedPsychiatric Exam Psych Exam: Normal Thougth Process and Good Insight Results Hemoglobin/Hematocrit: Hgb 8.4 g/dL (11.2-15.7) L 07/08/20 06:15 Hct 25.5 % (36.0-46.0) L 07/08/20 06:15 Abnormal Lab Findings: Abnormal Labs 07/07/20 07/07/2007/07/20 12:23 12:23 14:55 WBC 11.63 H RBC 3.04 L 2.87 L Hgb 9.4 L 8.7 L Hct 28.9 L 27.2 L MCV 95.1 H Absolute Neutrophils 9.87 H Anion Gap 13.6 H Glucose 109 H Alkaline Phosphatase 610 H Albumin 2.1 L Urine Methadone Screen 07/08/20 07/08/20 02:15 06:15 WBC RBC 2.73 L Hgb 8.4 L Hct 25.5 L MCV Absolute Neutrophils Anion Gap Glucose Alkaline Phosphatase Albumin Urine Methadone Screen Positive A
--- NOTE | 2020-07-08 07:54 | DSE_ITS ---
Date of service: 07/08/20 Time of Service: 07:54 DS: Diagnosis Discharge Diagnosis (1) Spontaneous vaginal delivery: Status: Acute (2) Abnormalities of amnion: Status: Acute (3) Incompetent cervix: Status: Acute (4) Long-term current use of methadone for opiate dependence: Status: Acute (5) Pneumonia: Status: Acute Discharge Plan Disposition Patient Disposition: HOME Condition: Improving Discharge Details Reason For Visit: DILATED CERVICAL OS 19WKS, PNEUMONIA, COVID PUI Admit Date/Time: 07/07/20 16:46 Admit Provider: Jeannette Kimble Attending Provider: Jeannette Kimble Primary Care Provider: Jose Jiménez Hospital Course Hospital Course: Patient is a 29-year-old 10 para 3-3-3-6 who initially presented to [facility] emergency department with complaints of cough and respiratory symptoms. She had no fevers or chills. She also was noted to have episodes of vaginal bleeding. She is a PUI and Covid swabs were obtained. Chest x-ray confirms atypical pneumonia pattern. White blood cell count which was initially elevated stabilized. She is anemic, chronically. She had ultrasound performed which confirmed prolapsed membranes through the cervical os into the vagina with cervical os that was dilated approximately 1 cm. In light of these factors she was admitted to the center. She received IV clindamycin for her atypical pneumonia remained afebrile with a normal white count. She did have completely per prolapse membranes with spontaneous rupture of membranes and due to this and the nonviable status of her fetus, augmentation of labor was performed with 400 mcg of misoprostol orally. She did receive epidural for pain management. She subsequently progressed to the point that she was completely dilated and with a small amount of maternal effort delivered a stillborn female infant. Placenta followed spontaneously with maternal pushing in approximately 10 minutes time. She had no increase in her bleeding and lochia was physiologic. She was able to spend time holding her baby. Care management will be involved. From respiratory standpoint she is stable for discharge today on a 10-day course of oral antimicrobials. She will have close follow-up in our office in 1 week's time Home Meds and New Rx's Prescriptions: New acetaminophen [Tylenol] 325 mg Tablet 650 mg PO Q4H PRN PRNQty: 60 RF: 0 docusate sodium [Colace] 100 mg Capsule 100 mg PO BID PRN PRNQty: 30 RF: 0 dextromethorphan-guaifenesin 10-100 mg/5 mL Syrup 10 ml PO Q4H PRN PRNQty: 237 RF: 3 ibuprofen [IBU] 600 mg Tablet 600 mg PO Q6H PRN PRNQty: 30 RF: 1 doxycycline hyclate 150 mg tablet 150 mg PO BID Qty: 20 RF: 0 Continued pantoprazole [Protonix] 20 mg tablet,delayed release (DR/EC) 40 mg PO DAILY Qty: 30 RF: 3 methadone [Methadone Intensol] 10 mg/mL concentrate 85 mg PO DAILY RF: 0 mirtazapine 30 mg tablet 30 mg PO HS Qty: 120 RF: 5 albuterol sulfate [ProAir HFA] 90 mcg/actuation HFA aerosol inhaler 1 inh IH ONCE PRNRF: 0 Discontinued [facility] (PF) 275 mg/1.1 mL auto-injector 275 mg SC QWEEK Qty: 4 RF: 4 Discharge Instructions Additional Instructions: Follow-up with Dr. Kimble, [facility] in 1 week Stand Alone Forms: BC Post Vaginal Deliver Activity:: Pelvic rest Equipment/Supplies:: No Equipment Needed Diet:: As Tolerated Discharge Orders Discharge Orders: Discharge Order (Routine); Ordered 07/08/20 Ordered By: Jeannette Kimble DS: Summary Summary Time spent discussing smoking cessation with patient: 3 to 10 minutes Status at Discharge Functional status at discharge: independent ambulation Overall status at discharge: patient is progressing back to baseline Mental Status: mental status grossly normal Speech and Movement: speech and movement normal Mood: other (Appropriate for grief) Affect: sad Time Spent with Patient providing and/or coordinating discharge services: Greater than 30 minutes Exam Narrative Exam Narrative: See examination from progress note today Psych Mental Status: mental status grossly normal Speech and Movement: speech and movement normal Affect: sad DS: Data Vitals/I&O Vitals and I&O: Vital Signs Temperature 98.8 F 07/08/20 02:25 Temperature Source Temporal Artery Scan 07/07/20 14:54 Pulse 75 07/08/20 03:02 Pulse Rhythm Regular 07/08/20 01:08 Respiratory Rate 20 07/07/20 17:38 Respiratory Effort 07/07/20 21:25 Blood Pressure 111/53 L 07/08/20 03:02 Blood Pressure Mean 87 07/07/20 17:01 Pulse Oximetry 96 07/07/20 23:25 Oxygen Delivery Method Room Air 07/08/20 01:07 Oxygen Flow Rate 0 07/08/20 01:07 Pain Level 0 07/07/20 17:38 Intake & Output 07/07/20 07/07/20 07/08/20 11:59 23:59 11:59 Intake Total 533.333 / 533.333 Output Total 400 / 400 Balance 133.333 / 133.333 Weight 130 lb Intake: IV 533.333 / 533.333 Output: Urine 400 / 400 Other: Urine Color Light [place] Data Completed and Pending Labs on day of discharge: Labs from last 24 hours 07/08/20 07/08/20 07/07/20 06:15 02:15 14:55 WBC 9.85 9.34 RBC 2.73 L 2.87 L Hgb 8.4 L 8.7 L Hct 25.5 L 27.2 L MCV 93.4 94.8 MCH 30.8 30.3 MCHC 32.9 32.0 RDW 13.2 13.2 Plt Count 382 337 MPV 10.2 9.8 Immature Gran % Neutrophils % Lymphocytes % Monocytes % Eosinophils % Basophils % Nucleated RBC % Absolute Neutrophils Absolute Lymphocytes Absolute Monocytes Absolute Eosinophils Absolute Basophils Sodium Potassium Chloride Carbon Dioxide Anion Gap BUN Creatinine Estimated GFR/1.73 m2 Glucose Calcium Total Bilirubin AST ALT Alkaline Phosphatase Total Protein Albumin Urine Opiates Screen Negative Urine Methadone Screen Positive A Ur Barbiturates Screen Negative Ur Tricyclics Screen Negative Ur Amphetamines Screen Negative U Benzodiazepines Scrn Negative Urine Cocaine Screen Negative Ur THC Screen Negative COVID-19 PCR Nasopharyn COVID-19 PCR SARS-CoV-2 Source SARS-CoV-2 (PCR) Ref Test Perform Site Patient ABO/Rh Antibody Screen 07/07/20 07/07/20 07/07/20 13:05 12:57 12:23 WBC RBC Hgb Hct MCV MCH MCHC RDW Plt Count MPV Immature Gran % Neutrophils % Lymphocytes % Monocytes % Eosinophils % Basophils % Nucleated RBC % Absolute Neutrophils Absolute Lymphocytes Absolute Monocytes Absolute Eosinophils Absolute Basophils Sodium Potassium Chloride Carbon Dioxide Anion Gap BUN Creatinine Estimated GFR/1.73 m2 Glucose Calcium Total Bilirubin AST ALT Alkaline Phosphatase Total Protein Albumin Urine Opiates Screen Urine Methadone Screen Ur Barbiturates Screen Ur Tricyclics Screen Ur Amphetamines Screen U Benzodiazepines Scrn Urine Cocaine Screen Ur THC Screen COVID-19 PCR Pending Nasopharyn COVID-19 PCR Pending SARS-CoV-2 Source Pending SARS-CoV-2 (PCR) Pending Ref Test Perform Site Pending Patient ABO/Rh O Positive Antibody Screen Negative 07/07/20 07/07/20 12:23 12:23 WBC 11.63 H RBC 3.04 L Hgb 9.4 L Hct 28.9 L MCV 95.1 H MCH 30.9 MCHC 32.5 RDW 13.2 Plt Count 371 MPV 9.9 Immature Gran % 0.6 Neutrophils % 84.9 Lymphocytes % 10.9 Monocytes % 3.0 Eosinophils % 0.4 Basophils % 0.2 Nucleated RBC % 0 Absolute Neutrophils 9.87 H Absolute Lymphocytes 1.27 Absolute Monocytes 0.35 Absolute Eosinophils 0.05 Absolute Basophils 0.02 Sodium 138 Potassium 3.5 Chloride 102 Carbon Dioxide 22.4 Anion Gap 13.6 H BUN 11 Creatinine 0.84 Estimated GFR/1.73 m2 >= 60.00 Glucose 109 H Calcium 8.7 Total Bilirubin 0.4 AST 27 ALT 32 Alkaline Phosphatase 610 H Total Protein 7.4 Albumin 2.1 L Urine Opiates Screen Urine Methadone Screen Ur Barbiturates Screen Ur Tricyclics Screen Ur Amphetamines Screen U Benzodiazepines Scrn Urine Cocaine Screen Ur THC Screen COVID-19 PCR Nasopharyn COVID-19 PCR SARS-CoV-2 Source SARS-CoV-2 (PCR) Ref Test Perform Site Patient ABO/Rh Antibody Screen 07/08/20 03:30 Placenta Anaerobic Culture - Pending Preliminary micro results at discharge 07/08/20 03:30 Anaerobic Culture - Pending Placenta [facility] Medical History (Updated 07/08/20 @ 07:23 by Jeannette Kimble DO) Abnormalities of amnion Anxiety disorder, unspecified Chronic pelvic pain in female since of her son 06/2012 Constipation Contraception (10/21/15) depoprovera after at 33w. IBS (irritable bowel syndrome) Incompetent cervix Incomplete miscarriage Long-term current use of methadone for opiate dependence Through [facility] in [facility]. 11 17 2019 current dose 85 mg Major depressive disorder, recurrent, unspecified Opioid abuse began Methadone Rx during 2016 Postprandial abdominal pain in right upper quadrant with 20 completed weeks gestation premature rupture of membranes 11/16/2019 33 weeks 5 days EGA. Transferred to [facility] in [facility]. . F. [id number] Crystal. transferred to [facility] NICU. Spontaneous vaginal delivery Threatened miscarriage Upper respiratory infection Surgical History Appendectomy (~2011) Dilation and curettage with SAB age 15 Family History Father Blood clotting tendency pt does not know exact name, it was cause of . COPD (chronic obstructive pulmonary disease) Mother Diabetes Social History Smoking/Tobacco Use Status: Current every day Tobacco Type: cigarettes Smoking risk assessment performed?: Yes Alcohol Intake: never Drug use: Current Sobriety Substance use type: former substance user and painkillers Seatbelt use: never Do you feel safe at home: Yes Do you feel safe in your relationship?: Yes Female Reproductive History Menstrual control method: none History History 10 Para 6 Hx # Term Pregnancies 3 Multiple births 0 Hx # Pregnancies 3 Ectopic pregnancies 0 AB induced 1 Hx Number of Living Children 6 AB spontaneous 2 Past Pregnancies Del. Date GA/Weeks # Outcome Route Wgt Sex Labor Lgth Anesthes ia Location [facility] Complic 01/05/10 38 No Successful vaginal 6 lb 1 oz Female [facility] hrs [facility] 12/21/10 34 No Successful vaginal 5 lb 8 oz Female ? [facility] 06/11/12 24 No Successful vaginal 2 lb 8 oz Male ? [facility] 07/26/14 38 No Successful vaginal 6 lb 11 oz Female ? [facility] c[facility] 10/20/15 24 No Successful vaginal 4 lb 8 oz Female ? dr. cheng 11/17/19 34 No Successful vaginal 4 lb 8 oz Female quick labo r and , no meds [place], [place] Delivery Date: 01/05/10 w/o c/o. LELONG,ANEA Delivery Date: 12/21/10 sga thus iol, w/o c/o. LELONG,ANEA Delivery Date: 06/11/12 appendectomy @ [facility] then labor then delivery. LELONG,ANEA Delivery Date: 07/26/14 term spontaneous LELONG,ANEA Delivery Date: 10/20/15 circlage spontaneous labor 6cm on admission, delivered at [facility], yet infant to [facility] 2`to infection , a&w. COREY VILLAR Delivery Date: 11/17/19 PPROM, transferred to [facility], delivered the next day. Izabella Pardo
[2020-07-08] MEDS: DOXYCYCLINE 100 MG in Normal Saline 100 ML IVPB (07:57)
[2020-07-08] MEDS: Pantoprazole 40 MG TABCR PO (09:32)
[2020-07-08] MEDS: Ibuprofen 600 MG TAB PO (10:57)
[2020-07-08 11:34] LABS: SARS-CoV-2 RNA Source Nasal/Nares
[2020-07-08 11:37] LABS: SARS-CoV-2 RNA Not Detected (NotDetected)
--- NOTE | 2020-07-08 12:27 | CMPROGNOTE_ITS ---
- If Service Date Differs Date of service: 07/08/20 Time of Service: 12:27 Care Management Progress Note CM was asked to visit with Gabriela and Joey, after they experienced demise. Gabriela was 19 weeks , and arrived at the ED yesterday with a concern for respiratory illness. She was subsequently admitted to OB floor, where the demise was identified. Joey stated that they were not expecting this, which was difficult for both of them. Gabriela stated that they have had 10 pregnancies, but this is the first time they have had a situation that compares to this experience. CM went over options including cremation at [facility], or homes such as [facility]. They decided to choose [facility] for final arrangements. CM facilitated signing of required documents. CM offered support to Gabriela and Joey through this difficult process. CM called Mami at [facility], who arrived at [facility] shortly after to transport the baby. Mami reported that she will contact the family and walk them through the process.
--- NOTE | 2020-07-08 12:35 | NUR.NOTE ---
Discharged S/P demise. Caremanagers had visited with patient and and arrangments discussed. Fetus to be cremated.Nursing Note:
== END 2020-07-08 12:30 | disposition home or self-care (01) | DRG 805 ==
LOC: ER 17:17 → OBS 17:27
PROVIDERS: Admitting Provider Obstetrics & Gynecology; Emergency Provider Student in an Organized Health Care Education/Training Program; PCP Emergency Medicine; Visit Provider Obstetrics & Gynecology
DX: O36.4XX0 Maternal care for intrauterine death, not applicable or unspecified (principal); O34.32 Maternal care for cervical incompetence, second trimester; Z37.1 Single stillbirth; J18.8 Other pneumonia, unspecified organism; O99.322 Drug use complicating pregnancy, second trimester; F11.20 Opioid dependence, uncomplicated; Z3A.20 20 weeks gestation of pregnancy; O41.92X0 Disorder of amniotic fluid and membranes, unspecified, second trimester, not applicable or unspecified; O03.9 Complete or unspecified spontaneous abortion without complication; O99.512 Diseases of the respiratory system complicating pregnancy, second trimester; O99.332 Smoking (tobacco) complicating pregnancy, second trimester; F17.210 Nicotine dependence, cigarettes, uncomplicated; O99.342 Other mental disorders complicating pregnancy, second trimester; F41.8 Other specified anxiety disorders; J45.909 Unspecified asthma, uncomplicated; Z67.40 Type O blood, Rh positive
CPT/HCPCS: 36415; 76815; 80053; 80307; 85027; 86850; 86900; 86901; 88305; 94640; 96365; 99223; 99239; 99252; 99285; U0003; 71045; 85025; 87070; 87075; 87205; J7620

== ENCOUNTER 2023-10-23 12:45 | Outpatient (REF) | payer MEDICAID, SELFPAY ==
[2023-10-23 15:47] LABS: Abs Immature Grans 0.02 10^3/uL (0.0-0.06); Absolute Basophil Count 0.06 10^3/uL (0.0-0.2); Absolute Eosinophil Count 0.15 10^3/uL (0.0-0.7); Absolute Lymphocyte Count 2.76 10^3/uL (1.2-3.4); Absolute Monocyte Count 0.24 10^3/uL (0.1-0.8); Absolute Neutrophil Count 5.07 10^3/uL (1.2-6.7); Basophils % 0.7; Eosinophils % 1.8; HCT 40.3 % (36.0-46.0); HGB 13.4 g/dL (11.2-15.7); Immature Grans % 0.2; Lymphocytes % 33.3; MCH 31.8 pg (27.0-33.0); MCHC 33.3 % (32.0-36.0); MCV 96 fL (80-95); MPV 10.8 fL (8.0-11.0); Monocytes % 2.9; Neutrophils % 61.1; Platelet Count 268 10^3/uL (130-400); RBC 4.22 10^6/uL (3.93-5.22); RDW 12.1 % (11.7-14.6); RDW-SD 41.5 fL
[2023-10-23 16:00] LABS: Iron 81 ug/dL (50-170); Total Iron Binding Capacity 408 ug/dL (250-450); Transferrin Sat 20 % (15-50)
[2023-10-23 16:16] LABS: Hemoglobin A1C 5.6 % (<5.7)
[2023-10-23 16:21] LABS: ALT 31 U/L (14-59); AST 28 U/L (15-37); Albumin 3.4 g/dL (3.4-5.0); Alkaline Phosphatase 134 U/L (46-116); Anion Gap 8.6 mmol/L (3-11); BUN 27 mg/dL (7-18); Bilirubin, Total 0.3 mg/dL (0.2-1.0); CO2 26.4 mmol/L (21.0-32.0); CREATININE 1.1 mg/dL (0.55-1.02); Calcium 8.9 mg/dL (8.5-10.1); Chloride 105 mmol/L (98-107); Estimated GFR 68.04 (mL/min/1.73m2); Ferritin 78 ng/mL (8-252); Folate 9.1 ng/mL (8.6-20.0); Glucose 78 mg/dL (74-106); Potassium 4.4 mmol/L (3.5-5.1); Sodium 140 mmol/L (136-145); TSH (W/Ref FT4) 3.44 uIU/mL (0.36-3.74); Total Protein 7.3 g/dL (6.4-8.2); Vitamin B12 389 pg/mL (193-986)
[2023-10-23 16:25] LABS: Vitamin D 25 Total 22.2 ng/mL (30-100)
== END 2023-10-23 12:46 | disposition home or self-care (01) ==
LOC: NCHCN 12:45
PROVIDERS: Visit Provider Nurse Practitioner Family
DX: R53.83 Other fatigue (principal)
CPT/HCPCS: 80053; 82306; 82607; 82728; 82746; 83036; 83540; 83550; 84443; 85025

== ENCOUNTER 2025-04-27 15:27 | Outpatient (REF) | payer MEDICAID, SELFPAY ==
[2025-04-27 15:36] LABS: HCT 39.9 % (36.0-46.0); HGB 13.2 g/dL (11.2-15.7); MCH 33.0 pg (27.0-33.0); MCHC 33.1 % (32.0-36.0); MCV 100 fL (80-95); MPV 10.8 fL (8.0-11.0); Platelet Count 277 10^3/uL (130-400); RBC 4.00 10^6/uL (3.93-5.22); RDW 11.9 % (11.7-14.6); RDW-SD 43.3 fL; WBC 12.19 10^3/uL (4.4-10.8)
[2025-04-27 15:46] LABS: ALT 41 U/L (14-59); AST 45 U/L (15-37); Albumin 3.9 g/dL (3.4-5.0); Alkaline Phosphatase 146 U/L (46-116); Anion Gap 8.4 mmol/L (3-11); BUN 23 mg/dL (7-18); Bilirubin, Total 0.5 mg/dL (0.2-1.0); CO2 28.6 mmol/L (21.0-32.0); Calcium 9.2 mg/dL (8.5-10.1); Chloride 102 mmol/L (98-107); Estimated GFR 67.20 (mL/min/1.73m2); Glucose 92 mg/dL (74-106); Lipase 23 U/L (<78); Potassium 4.6 mmol/L (3.5-5.1); Sodium 139 mmol/L (136-145); Total Protein 7.6 g/dL (6.4-8.2)
== END 2025-04-27 15:28 | disposition home or self-care (01) ==
LOC: NCHCN 15:27
DX: R19.09 Other intra-abdominal and pelvic swelling, mass and lump (principal)
CPT/HCPCS: 80053; 83690; 85027

== ENCOUNTER 2025-05-06 12:07 | Outpatient (CLI) | payer MEDICAID, SELFPAY ==
--- NOTE | 2025-05-06 | DI.CT_ITS ---
Exam(s) CT ABDOMEN PELVIS W EXAM: CT ABDOMEN PELVIS W CLINICAL HISTORY: INTRA ABD AND PELVIC MASS SWELLING LUMP R19.00PALPABLE ABD MASS. TECHNIQUE: Imaging Protocol: Axial computed tomography images with coronal and sagittal reformatted images were created and reviewed CONTRAST MATERIAL: Intravenous: Omnipaque 350 Contrast volume:75 ml Oral: yes COMPARISON: No exams were available for comparison FINDINGS: ABDOMEN and PELVIS: Lung Bases: No acute findings. Liver: Normal density. No suspicious mass. Gallbladder and biliary tract: Noncalcified gallstones noted. No wall thickening or pericholecystic fluid. No biliary dilation. Pancreas: Nor somewhat atrophic. No abnormal calcifications or inflammatory process. No evidence of mass. Spleen: Normal. Kidneys: Normal size, contour and axis. No radiodense stones. No obstructive uropathy. No suspicious masses seen. Adrenal glands: No masses seen. Vasculature: Abdominal aorta non-dilated. Soft tissues: Fat containing hernia to the right of the umbilicus measuring 4.5 cm transverse by 3 cm AP by 5 cm. The abnormal stranding or bowel loops. No additional abdominal wall hernias. The abdominal wall defect measures 12 millimeters. Bladder: No gross wall thickening. No calculi.No focal mass. Bowel: No obstruction. No bowel wall thickening. Appendix normal. Large quantity of formed stool noted throughout the colon consistent with an element of constipation. Peritoneal cavity: No ascites. No focal collection. No mesenteric inflammatory response. No free air. Bones: Unremarkable for age. Reproductive organs: Unremarkable. Lymph nodes: No pathologically enlarged lymph nodes. IMPRESSION:: The palpable abnormality corresponds to a fat contain fatty hernia to the right of the umbilicus measuring 5 cm. RADIATION DOSE DELIVERED: 407.65mGy.cm Total DLP DATA REPOSITORY: All CT scans at this facility are submitted to the National Radiology Data Registry (NRDR) Dose Index Registry (DIR) with the [employer] (ACR). RADIATION OPTIMIZATION: All CT scans at this facility use at least one of these dose optimization techniques: automated exposure control; mA and/or kV adjustment per patient size (includes targeted exams where dose is matched to clinical indication); or iterative reconstruction.
[2025-05-06] MEDS: Barium Sulfate 2% W/V-Creamy Vanilla Smoothie 450 ML BTL PO (09:06)
[2025-05-06] MEDS: Barium Sulfate 2% W/V-Berry Smoothie 450 ML BTL PO (09:07)
[2025-05-06] MEDS: Omnipaque 350 MG/ML 100 ML BTL IJ (11:18)
[2025-05-06] MEDS: Normal Saline - Diluent 50 ML VIAL IJ (11:18)
[2025-05-06] MEDS: Normal Saline Flush 10 ML SYR IVP (11:19)
== END 2025-05-06 12:27 ==
LOC: DI 12:08
DX: R19.09 Other intra-abdominal and pelvic swelling, mass and lump (principal)
CPT/HCPCS: 74177; J3490

== ENCOUNTER 2025-05-17 00:42 | Outpatient (CLI) | payer MEDICAID, SELFPAY ==
--- NOTE | 2025-05-17 | DI.RAD_ITS ---
Exam(s) XR THORACIC SPINE COMPLETE EXAM: XR THORACIC SPINE COMPLETE CLINICAL HISTORY: CHRONC BACK PAIN,DORSALGIA,M54.9. TECHNIQUE: 2D digital imaging was performed of the thoracic spine. Two views were obtained. AP and lateral views were obtained. COMPARISON: No exams were available for comparison FINDINGS: BONES: There is no fracture or destructive lesion. Age-appropriate mild degenerative changes are seen throughout the thoracic spine. DISKS:Alignment is within normal limits. Interverebral disc spaces are maintained. SOFT TISSUE: Visualized lungs are clear. IMPRESSION: There are mild degenerative changes seen throughout the thoracic spine. DATA REPOSITORY: RADIATION DOSE DELIVERED:
--- NOTE | 2025-05-17 | DI.RAD_ITS ---
Exam(s) XR CHEST 2V PA LATERAL EXAM: XR CHEST 2V PA LATERAL CLINICAL HISTORY: MILD INTERMITTENT ASTHMA,J45.20 TECHNIQUE: 2D digital imaging was performed of the chest. Two images were obtained. PA and lateral views were obtained. COMPARISON: CR,XR XR CHEST 1V IN DI DEPT from 07/07/2020 FINDINGS: MEDIASTINUM: Normal. HEART: Normal. PULMONARY VASCULATURE: Normal. LUNGS: Mild chronic interstitial appearing findings in the lungs bilaterally. No focal consolidating infiltrates are seen. PLEURAL SPACE: No pleural effusion or pneumothorax. BONE:Within normal limits for the patient's age. OTHER FINDINGS:Normal. IMPRESSION: No acute pulmonary findings. DATA REPOSITORY: RADIATION DOSE DELIVERED:
--- NOTE | 2025-05-17 | DI.RAD_ITS ---
Exam(s) XR LUMBAR SPINE COMPLETE EXAM: XR LUMBAR SPINE COMPLETE CLINICAL HISTORY: DORSALGIA,M54.9 CHRONIC PAIN G89.29. TECHNIQUE: 2D digital imaging was performed of the lumbar spine. Five images were obtained. AP, lateral, right oblique, left oblique and L5-S1 spot views were obtained. COMPARISON: No exams were available for comparison FINDINGS: BONES: No fracture or destructive lesion. Vertebral bodies are unremarkable. No facet hypertrophy identified. DISKS: Intervertebral disc spaces are maintained. ALIGNMENT: Lumbar spinal alignment is within normal limits. No spondylolysis or spondylolisthesis. SOFT TISSUE: Normal. IMPRESSION: Unremarkable radiographs of the lumbar spine. DATA REPOSITORY: RADIATION DOSE DELIVERED:
--- NOTE | 2025-05-17 | DI.RAD_ITS ---
Exam(s) XR CERVICAL SPINE COMP 4-5V EXAM: XR CERVICAL SPINE COMP 4-5V CLINICAL HISTORY: DORSALGIA,M54.9 CHRONIC PAIN G89.29. TECHNIQUE: 2D digital imaging was performed. Five images were obtained. AP, odontoid, lateral and bilateral oblique images were obtained. COMPARISON: No exams were available for comparison FINDINGS: The odontoid is intact. The lateral masses are well aligned. There is mild reversal of the normal cervical lordosis centered at C5. The vertebral bodies, disc spaces and posterior elements are well maintained. No acute fracture or subluxation is present. No significant neural foraminal stenosis is present. The cervical thoracic junction is well maintained. The prevertebral soft tissues are unremarkable. Lung apices are clear. IMPRESSION: Mild reversal of the normal cervical lordosis. Otherwise unremarkable cervical spine. DATA REPOSITORY: RADIATION DOSE DELIVERED:
== END 2025-05-17 01:02 ==
LOC: DI 00:43
DX: M54.9 Dorsalgia, unspecified (principal); G89.29 Other chronic pain; J45.20 Mild intermittent asthma, uncomplicated
CPT/HCPCS: 71046; 72050; 72072; 72110